=== PATIENT | female | born 1950 | race Caucasian/White ===

== ENCOUNTER 2020-07-12 08:23 | Outpatient (REF) | payer MEDICARE, SELFPAY ==
[2020-07-12 11:17] LABS: Hematocrit 36.7 % (37-47); Hemoglobin 11.6 g/dl (12.0-16.0); Mean Corpuscular HGB Conc 31.6 g/dl (31.0-35.0); Mean Corpuscular Hemoglobin 29.9 pg (27.0-33.0); Mean Corpuscular Volume 94.6 fL (80-98); Mean Platelet Volume 10.7 fL (9.4-12.3); Platelet Count 233 X10*3/uL (160-400); Red Blood Count 3.88 X10*6/uL (4.20-5.50); Red Cell Distribution Width 12.7 % (11.0-16.0); White Blood Count 4.9 X10*3/uL (4.8-10.8)
[2020-07-12 11:33] LABS: Glucose Urine UA NEG (NEG); Leukocyte Esterase Urine 1+ (NEG); Nitrite Urine NEG (NEG); Specific Gravity - Urine 1.025 (1.005-1.025); Urine Blood NEG (NEG); Urine Ketones NEG (NEG); Urine Protein NEG (NEG-TRACE)
[2020-07-12 11:36] LABS: Alanine Aminotransferase 9 U/L (0-31); Albumin Level 3.9 g/dL (3.5-5.0); Alkaline Phosphatase 52 U/L (39-117); Anion Gap 13 (12-20); Aspartate Amino Transferase 16 U/L (5-31); Bilirubin Total 0.3 mg/dL (0.0-1.0); Blood Urea Nitrogen 22 mg/dL (9-16); Carbon Dioxide 28 mmol/L (22-29); Chloride 104 mmol/L (96-108); Cholesterol 186 mg/dL; Estimated Glomerular Filt Rate > 60; Glucose Fasting 72 mg/dL (60-99); HDL Cholesterol 58 mg/dL; LDL Cholesterol Calculated 115 mg/dl; Potassium 3.8 mmol/L (3.3-5.1); Sodium 141 mmol/L (135-145); Total Protein 7.1 g/dL (6.5-8.0); Triglycerides 65 mg/dL
[2020-07-12 11:41] LABS: Appearance Urine CLEAR; Color Urine YELLOW
[2020-07-12 11:54] LABS: RBC Urine 0 /HPF (0); Squamous Epithelial Cell Urine 1+ /LPF
[2020-07-12 11:55] LABS: Calcium Oxalate Crystals Urine TRACE /LPF; Mucus Urine 1+ /LPF; Renal Epithelial Cells Urine 1+ /LPF
[2020-07-12 11:58] LABS: TSH reflex Free T4 1.91 uIU/mL (0.32-4.0); Vitamin D 25-OH Total 68.3 ng/mL (>30)
[2020-07-15 21:16] LABS: DHEA Sulfate 179 mcg/dL (12-133)
[2020-07-18 21:01] LABS: Cortisol, Free <0.03 mcg/dL
== END 2020-07-12 08:24 | disposition home or self-care (01) ==
LOC: HO.HMGCLDS 08:23
PROVIDERS: PCP Internal Medicine; Visit Provider Internal Medicine
DX: E27.1 Primary adrenocortical insufficiency (principal); I10 Essential (primary) hypertension; E03.9 Hypothyroidism, unspecified; M85.80 Other specified disorders of bone density and structure, unspecified site
CPT/HCPCS: 36415; 80053; 80061; 81001; 82306; 82530; 82627; 84443; 85027

== ENCOUNTER 2020-08-23 08:02 | Outpatient (REF) | payer MEDICARE, SELFPAY ==
[2020-08-23 11:16] LABS: Glucose Urine UA NEG (NEG); Leukocyte Esterase Urine NEG (NEG); Nitrite Urine NEG (NEG); Specific Gravity - Urine >= 1.030 (1.005-1.025); Urine Blood NEG (NEG); Urine Ketones NEG (NEG); Urine Protein NEG (NEG-TRACE)
[2020-08-23 11:19] LABS: Appearance Urine CLEAR; Color Urine YELLOW
[2020-08-23 11:33] LABS: Mucus Urine 1+ /LPF; RBC Urine 0 /HPF (0); Renal Epithelial Cells Urine TRACE /LPF; Squamous Epithelial Cell Urine TRACE /LPF
[2020-08-27 17:47] LABS: DHEA Sulfate 88 mcg/dL (12-133)
[2020-08-30 16:46] LABS: Cortisol, Free <0.03 mcg/dL
== END 2020-08-23 08:03 | disposition home or self-care (01) ==
LOC: HO.HMGCLDS 08:02
PROVIDERS: PCP Internal Medicine; Visit Provider Internal Medicine
DX: I10 Essential (primary) hypertension (principal); E03.9 Hypothyroidism, unspecified; E27.1 Primary adrenocortical insufficiency; M85.80 Other specified disorders of bone density and structure, unspecified site
CPT/HCPCS: 36415; 81001; 82530; 82627

== ENCOUNTER 2020-09-24 08:10 | Outpatient (REF) | payer MEDICARE, SELFPAY ==
[2020-09-25 12:26] LABS: DHEA Sulfate 171 mcg/dL (12-133)
[2020-10-06 21:37] LABS: Cortisol, Free <0.03 mcg/dL
== END 2020-09-24 08:11 | disposition home or self-care (01) ==
LOC: HO.HMGCLDS 08:10
PROVIDERS: PCP Internal Medicine; Visit Provider Internal Medicine
DX: E03.9 Hypothyroidism, unspecified (principal); I10 Essential (primary) hypertension; E27.1 Primary adrenocortical insufficiency
CPT/HCPCS: 36415; 82530; 82627

== ENCOUNTER 2021-01-08 13:48 | Outpatient (REF) | payer MEDICARE, SELFPAY ==
--- NOTE | ~2021-01-08 | XR_ITS ---
EXAMINATION: XR CHEST CLINICAL INFORMATION: Pneumonia COMPARISON: None TECHNIQUE: 2 views of the chest were obtained. FINDINGS: There is no evidence of acute parenchymal disease, pneumothorax or pleural effusion. Heart normal size. No evidence of pulmonary edema. There is some right apical pleural thickening present. There is scoliosis at the thoracolumbar junction convex right. XR/XR chest 2V IMPRESSION: No acute disease.
== END 2021-01-08 13:49 | disposition home or self-care (01) ==
LOC: HO.HMGCX 13:48
PROVIDERS: PCP Internal Medicine; Visit Provider Internal Medicine
DX: Z13.89 Encounter for screening for other disorder (principal)
CPT/HCPCS: 71046

== ENCOUNTER 2021-05-14 09:46 | Outpatient (REF) | payer MEDICARE, SELFPAY ==
[2021-05-14 11:36] LABS: Hematocrit 36.5 % (37.0-47.0); Hemoglobin 11.7 g/dl (12.0-16.0); Mean Corpuscular HGB Conc 32.1 g/dl (31.0-35.0); Mean Corpuscular Hemoglobin 30.2 pg (27.0-33.0); Mean Corpuscular Volume 94.1 fL (80.0-98.0); Mean Platelet Volume 10.9 fL (9.4-12.3); Platelet Count 215 X10*3/uL (160-400); Red Blood Count 3.88 X10*6/uL (4.20-5.50); Red Cell Distribution Width 12.9 % (11.0-16.0); White Blood Count 4.8 X10*3/uL (4.8-10.8)
[2021-05-14 12:10] LABS: Alanine Aminotransferase 12 U/L (0-31); Alkaline Phosphatase 49 U/L (39-117); Anion Gap 10 (12-20); Aspartate Amino Transferase 16 U/L (5-31); Bilirubin Total 0.4 mg/dL (0.0-1.0); Blood Urea Nitrogen 21 mg/dL (9-16); Calcium 9.5 mg/dL (8.4-10.2); Carbon Dioxide 29 mmol/L (22-29); Chloride 106 mmol/L (96-108); Cholesterol 200 mg/dL; Estimated Glomerular Filt Rate > 60; Glucose Fasting 81 mg/dL (60-99); HDL Cholesterol 59 mg/dL; LDL Cholesterol Calculated 131 mg/dl; Potassium 4.1 mmol/L (3.3-5.1); Sodium 141 mmol/L (135-145); Total Protein 7.4 g/dL (6.5-8.0); Triglycerides 54 mg/dL
[2021-05-14 12:13] LABS: Vitamin D 25-OH Total 61.7 ng/mL (>30)
== END 2021-05-14 09:47 | disposition home or self-care (01) ==
LOC: HO.HMGCLDS 09:46
PROVIDERS: PCP Internal Medicine; Visit Provider Internal Medicine
DX: E03.9 Hypothyroidism, unspecified (principal); I10 Essential (primary) hypertension
CPT/HCPCS: 36415; 80053; 80061; 82306; 85027

== ENCOUNTER 2021-11-27 09:14 | Outpatient (REF) | payer MEDICARE, SELFPAY ==
[2021-11-27 12:30] LABS: TSH reflex Free T4 2.59 uIU/mL (0.32-4.0)
[2021-11-27 12:32] LABS: Alanine Aminotransferase 8 U/L (0-31); Albumin Level 3.8 g/dL (3.5-5.0); Alkaline Phosphatase 49 U/L (39-117); Anion Gap 12 (12-20); Aspartate Amino Transferase 14 U/L (5-31); Bilirubin Total 0.3 mg/dL (0.0-1.0); Blood Urea Nitrogen 23 mg/dL (9-16); Carbon Dioxide 28 mmol/L (22-29); Chloride 104 mmol/L (96-108); Cholesterol 167 mg/dL; Estimated Glomerular Filt Rate > 60; Glucose Fasting 75 mg/dL (60-99); HDL Cholesterol 53 mg/dL; LDL Cholesterol Calculated 102 mg/dl; Potassium 3.9 mmol/L (3.3-5.1); Sodium 140 mmol/L (135-145); Triglycerides 63 mg/dL
== END 2021-11-27 09:15 | disposition home or self-care (01) ==
LOC: HO.HMGCLDS 09:14
PROVIDERS: PCP Internal Medicine; Visit Provider Internal Medicine
DX: E27.1 Primary adrenocortical insufficiency (principal); I10 Essential (primary) hypertension; E03.9 Hypothyroidism, unspecified
CPT/HCPCS: 36415; 80053; 80061; 84443

== ENCOUNTER 2021-12-09 15:29 | Outpatient (REF) | payer MEDICARE, SELFPAY ==
[2021-12-09 15:46] LABS: MANUAL DIFF FLAG NO
[2021-12-09 16:25] LABS: Basophils Percent Auto 0.3 % (0-2); Hematocrit 35.2 % (37.0-47.0); Hemoglobin 11.6 g/dl (12.0-16.0); Imm Gran Abs Auto 0.05 X10*3/uL (0.00-0.03); Imm Gran Pct Auto 0.4 % (0.0-0.4); Lymphocytes Absolute Auto 1.3 X10*3/uL (1.2-4.9); Lymphocytes Percent Auto 11.2 % (20-40); Mean Corpuscular Hemoglobin 30.2 pg (27.0-33.0); Mean Corpuscular Volume 91.7 fL (80.0-98.0); Mean Platelet Volume 10.4 fL (9.4-12.3); Monocytes Absolute Auto 0.6 X10*3/uL (0.1-1.2); Monocytes Percent Auto 5.2 % (2-11); Neutrophils Absolute Auto 9.9 x10*3/uL (2.0-8.3); Neutrophils Percent Auto 82.9 % (45-73); Platelet Count 263 X10*3/uL (160-400); Red Blood Count 3.84 X10*6/uL (4.20-5.50); Red Cell Distribution Width 12.6 % (11.0-16.0)
[2021-12-09 16:32] LABS: D Dimer High Sensitivity 209 NG/ML
[2021-12-09 16:52] LABS: B Type Natriuretic Peptide 162 pg/mL (<100)
[2021-12-09 16:53] LABS: Alanine Aminotransferase 6 U/L (0-31); Albumin Level 4.1 g/dL (3.5-5.0); Alkaline Phosphatase 56 U/L (39-117); Anion Gap 15 (12-20); Aspartate Amino Transferase 13 U/L (5-31); Bilirubin Total 0.4 mg/dL (0.0-1.0); Blood Urea Nitrogen 14 mg/dL (9-16); C Reactive Protein 3.28 mg/dL (< or = 0.50); Calcium 9.3 mg/dL (8.4-10.2); Carbon Dioxide 27 mmol/L (22-29); Chloride 101 mmol/L (96-108); Estimated Glomerular Filt Rate > 60; Glucose Random 115 mg/dL (60-115); Potassium 3.8 mmol/L (3.3-5.1); Sodium 139 mmol/L (135-145); Total Protein 7.7 g/dL (6.5-8.0)
[2021-12-18 18:21] LABS: Cortisol, Free 0.76 mcg/dL
== END 2021-12-09 15:30 | disposition home or self-care (01) ==
LOC: HO.LAB 15:29
PROVIDERS: PCP Internal Medicine; Visit Provider Internal Medicine
DX: R06.02 Shortness of breath (principal); R05.9 Cough, unspecified
CPT/HCPCS: 36415; 80053; 82530; 83880; 85025; 85379; 86140

== ENCOUNTER → 2021-12-24 10:55 | Outpatient (REF) | payer MEDICARE, SELFPAY | LOC: HO.SL 10:55 | PROVIDERS: PCP Internal Medicine; Visit Provider Internal Medicine | DX: G47.33 Obstructive sleep apnea (adult) (pediatric) (principal) | CPT/HCPCS: 95806 ==

== ENCOUNTER → 2022-02-11 10:53 | Outpatient (BNVA) | payer MEDICARE, SELFPAY | PROVIDERS: PCP Internal Medicine; Visit Provider Nurse Practitioner Family | DX: G47.30 Sleep apnea, unspecified (principal) | CPT/HCPCS: 99202 ==

== ENCOUNTER → 2022-02-12 14:55 | Outpatient (REF) | payer MEDICARE, SELFPAY ==
--- NOTE | 2022-02-12 14:57 | CA_ITS ---
Transthoracic Echocardiogram Patient (Last, First, Middle): Ratan Rodarte M Gender: Female Date of : 1950 Age: 71 Procedure Date: 02/12/2022 Procedure Type: Transthoracic Echocardiogram Location: OP Height: 165.1 cm Weight: 58.06 kg BSA: 1.64 m2 Heart Rate: 77 bpm BP: 102 / 76 mmHg Linen Checker: SB Referring MD: Michelle Álvarez MD Square Shear Operator: Guy Patrick MD Symptoms: R00.2 - Palpitations Study Quality: Adequate ECG Rhythm: Sinus Conclusions: - 1. Normal LV systolic function with impaired relaxation filling pattern 2. Normal cardiac valvular Doppler 3. Normal RV systolic pressure 4. No pericardial effusion Findings Left Ventricle Normal left ventricular size, thickness, and systolic function. The visually estimated ejection fraction is between 60-65%. Spectral Doppler is indicative of an impaired relaxation filling pattern. Right Ventricle Normal right ventricular cavity size and systolic function. Atria Both atria are normal in size. Interatrial shunt cannot be excluded. Aortic Valve There is mild calcification of the aortic valve. There is no aortic valve stenosis. There is no aortic valve regurgitation. Mitral Valve There is mild anterior mitral leaflet thickening. There is trace mitral valve regurgitation. There is no mitral valve stenosis. Pulmonic Valve The pulmonic valve was not well visualized. Tricuspid Valve Likely normal tricuspid valve structure and function. There is trace tricuspid valve regurgitation. The right ventricular systolic pressure is normal. The right ventricular systolic pressure is 23 mmHg. Normal right atrial pressure. There is no evidence of pulmonary hypertension. Great Vessels All visible segments of the aorta are normal in size. The pulmonary artery was not well visualized. Venous The inferior vena cava is normal in size and collapses greater than 50% with inspiration. Pericardium/Pleural There is no evidence of pericardial effusion. Prior Study Comparison No significant change compared to prior study dated: 02/03/2017. Measurements 2D Linear Measurements IVSd: 0.65 0.6-0.9/0.6-1.0 cm LVIDd: 3.54 3.9-5.3/4.2-5.9 cm LVIDd Index: 2.16 2.4-3.2/2.2-3.1 cm/m2 LVIDs: 2.40 2.0-3.6 cm LVPWd: 0.52 0.7-1.1 cm LA Diam: 1.90 2.7-3.8/3.0-4.0 cm LAIDs Index: 1.16 1.5-2.3 cm/m2 LV Mass: 62.25 67-162/88-224 g LV Mass Index: 37.96 43-95/49-115 g/m2 LVOT Diam: 2.00 3.0+(-)1.3 cm 2D Systolic Function EF 4C: 60.70 >55% EF 2C: 59.80 >55% EF BiP: 60.70 >55% Mitral Valve MV Pk E: 0.52 MV PK A: 0.49 MV Decel Time: 191.00 E/A: 1.10 E'Lateral: 8.70 E'Medial: 7.18 E/E' Med: 7.20 E/E' Lat: 6.00 PHT: 56.00 MVA PHT: 3.93 Decel Drew: 2.71 Aortic Valve AoV Pk Aayush: 1.00 AoV Mn Aayush: 0.65 AoV VTI: 0.14 AoV Pk Grad: 4.00 Aov Mn Grad: 2.00 XIOMY Cont.VTI: 2.94 LVOT LVOT Pk Aayush: 0.81 LVOT Mn Aayush: 0.56 LVOT VTI: 0.14 LVOT Pk Grad: 3.00 LVOT Mn Grad: 1.00 LVOT Diam: 2.00 LVOT Area: 3.14 Diastolic Function MV Pk E: 0.52 MV Pk A: 0.49 E/A: 1.10 E'Medial: 7.18 E/E' Med: 7.20 E' Laterial: 8.70 E/E' Lat: 6.00 Right Ventricle TAPSE (mm): 11.50 TVS' Aayush: 6.50 Tricuspid Valve TR Pk Aayush: 2.23 TR Pk Grad: 20.00 RA Press: 3.00 RVSP: 23.00 Great Vessels Aorta Sinus of Valsalva: 3.10 2.0-3.5 cm Pulmonary Valve PV Pk Aayush: 0.76 Peak PV Grad: 2.00 Updated in Other Vendor System with Status of Final Guy Patrick MD electronically signed on 02/13/2022 11:17:00 AM with status of Final
--- NOTE | 2022-02-12 14:57 | HM_ITS ---
Conclusion: 1. Patient was monitored for total period of 4 days and 21 hours 2. Baseline was normal sinus rhythm with average heart rate of 71 beats per minute 3. No significant pauses or bradycardia noted 4. Total of 460 PACs accounting for 0.09% of total beats account for rare PACs 5. Patient reported multiple events correlated with sinus rhythm MTDD
== END ==
LOC: HO.CARD 14:55
PROVIDERS: PCP Internal Medicine; Visit Provider Internal Medicine
DX: R00.2 Palpitations (principal)
CPT/HCPCS: 93242; 93306

== ENCOUNTER → 2022-05-13 10:53 | Outpatient (BNVA) | payer MEDICARE, SELFPAY | PROVIDERS: PCP Internal Medicine; Visit Provider Nurse Practitioner Family | DX: G47.30 Sleep apnea, unspecified (principal) | CPT/HCPCS: 99212 ==

== ENCOUNTER 2022-10-23 09:41 | Outpatient (REF) | payer MEDICARE, SELFPAY | END 2022-10-23 09:42 | disposition home or self-care (01) | LOC: HO.HMGCLDS 09:41 | PROVIDERS: PCP Internal Medicine; Visit Provider Internal Medicine | DX: Z00.00 Encounter for general adult medical examination without abnormal findings (principal); E03.9 Hypothyroidism, unspecified; E27.1 Primary adrenocortical insufficiency; I10 Essential (primary) hypertension | CPT/HCPCS: 36415; 80053; 80061; 85025 ==

== ENCOUNTER 2022-11-11 11:26 | Outpatient (AMB) | payer MEDICARE, SELFPAY ==
[2022-11-11 11:56] VITALS: BP 136/78; PULSE 64; O2SAT 98; BMI 22.6
--- NOTE | 2022-11-11 11:56 | MHC.PC.OV ---
Vital Signs 11/11/22 11:56 Height 5 ft 5 in Intake Visit Reasons: AWV Allergies No Known Allergies Allergy (Verified 05/13/22 10:59) Tobacco use date assessed: 03/24/22 [facility] Medical History Addisons disease Annual physical exam HTN (hypertension) Human papilloma virus (HPV) DNA test negative Hypothyroidism Microscopic hematuria Osteopenia Osteopenia Kathleen syndrome Vaginal pessary present Surgical History H/O colonoscopy History of esophagogastroduodenoscopy (EGD) History of lung surgery Social History Housing: House Alcohol intake: current Alcohol intake frequency: holidays/special occasions only Patient Tobacco Use Status: Never used Tobacco e-Cigarette/Vaping Use: Never Used Current occupational status: retired Cognitive needs: No Hearing needs: No Vision needs: No Questionnaire Thrive Questionnaire Date Thrive assessed: 03/24/22 SENIA-7 AMB Questionnaire SENIA-7 Date SENIA - 7 assessed: 03/24/22 Source: Developed by Drs. Sammy Dumas, Cary Mccormack, Davidson Blake and colleagues, with an educational zhanna from [employer]. Physical exam (Primary Care) Tobacco/Smoking Status: Tobacco use Status Tobacco use date assessed 03/24/22 03/24/22 10:24 Patient Tobacco Use Status Never used Tobacco 03/24/22 10:24 e-Cigarette/Vaping Use Never Used 03/24/22 10:24 Thrive Assessment: Date of Thrive Assessment Date Thrive assessed 03/24/22 03/24/22 10:24 Coding Diagnoses
--- NOTE | 2022-11-11 11:57 | AM.OFFVISMDC ---
Intake Vital Signs 11/11/22 11:56 Height 5 ft 5 in Weight 136 lb BMI 22.6 BP 136/78 Blood Pressure Location Lt brachial Position Sitting Pulse 64 Pulse Source Pulse Oximeter Pulse Oximetry (%) 98 Oxygen Delivery Method Room Air Intake Visit Reasons: AWV Intake Note: Pt is here today for AWV. Allergies No Known Allergies Allergy (Verified 11/11/22 11:59) Medication List - Last Reconciled 11/11/22 by Michelle Álvarez MD calcium carbonate 600 mg PO DAILY cholecalciferol (vitamin D3) 75 mcg PO DAILY fludrocortisone 0.1 mg PO DAILY hydrocortisone mg PO levothyroxine 88 mcg PO DAILY nifedipine ER 30 mg PO DAILY pantoprazole mg PO HPI AWV HPI Details Pt presents for annual.Initiated the conversation about Advanced Directives. Advanced Directives help? patients prepare for current and future decisions about their medical treatment? and place of care. Discussed with patient that it is a process where a patients? current condition and prognosis are reviewed, their wishes for information? regarding their illness are elicited, and likely medical dilemmas are presented? and options discussed. The form can be amended as needed, reviewed yearly and? make changes as needed IPPE/AWV ? year old presents? for her ? Annual? Wellness Visit, initial visit.? Medical / Social History Reviewed? Past Medical History ?Yes? . ? [place]? of Care / Care Team list updated ?Yes . ? Surgical/Hospitalization? History ?Yes . ? Current Medications? (including OTC and supplements) ?Yes . ? Family History ?Yes? . ? Tobacco? Control form ?Yes . ? AUDIT-C (Alcohol use) form? ?Yes . ? Illicit drug use in Social? History ?Yes . ? Current diagnosis of? depression? ?No ? Appropriate PHQ2/PHQ9? completed ?Yes . ? Data entered by ?Medical? Senior Financial Reporting Analyst and reviewed by provider ? Fall Risk ? Fall? History? Have you had any falls with? injury in the past year? ?No . ? Have you had two or more? falls in the past year? ?No . ? Fall Risk Assessment: ?No? falls in the past year . ? HRA filled out by? the patient, reviewed by Provider and scanned. ? IPPE/AWV ? Balance? [place]? ?Yes . ? Tandem? walk ?Yes . ? Walk and? Turn ?Yes . ? Rise from? sit to stand ?Yes . ?Vision? Corrective? lens ?Yes ? Vision? screen ? Up-to-date, has an appointment [] for vision? screening and glaucoma screening ?Hearing? Whisper? test ?pass .? Initiated the conversation about Advanced Directives. Advanced Directives help? patients prepare for current and future decisions about their medical treatment? and place of care. Discussed with patient that it is a process where a patients? current condition and prognosis are reviewed, their wishes for information? regarding their illness are elicited, and likely medical dilemmas are presented? and options discussed. The form can be amended as needed, reviewed yearly and? make changes as needed Written? Plan?Completed. See Patient? Documents. [facility] Medical History Addisons disease Annual physical exam HTN (hypertension) Human papilloma virus (HPV) DNA test negative Hypothyroidism Microscopic hematuria Osteopenia Osteopenia Kathleen syndrome Vaginal pessary present Surgical History H/O colonoscopy History of esophagogastroduodenoscopy (EGD) History of lung surgery Social History Housing: House Alcohol intake: current Alcohol intake frequency: holidays/special occasions only Patient Tobacco Use Status: Never used Tobacco e-Cigarette/Vaping Use: Never Used Current occupational status: retired Cognitive needs: No Hearing needs: No Vision needs: No Questionnaire Medicare Wellness Checkup [age] What gender do you identify with?: female During the past 4 weeks, how much have you been bothered by emotional problems such as feeling anxious, depressed, irritable, sad or downhearted, and blue?: slightly During the past 4 weeks, has your physical & emotional health limited your social activities with family, friends, neighbors, or groups?: not at all During the past 4 weeks, how much bodily pain have you generally had?: no pain During the past 4 weeks, was someone available to help you if you needed & wanted help?: yes, as much as I wanted During the past 4 weeks, what was the hardest physical activity you could do for at least 2 minutes?: heavy Can you get to places out of walking distance without help? (For eg., can you travel alone on buses, taxis or drive your car?): Yes Can you go shopping for groceries or clothes without someone's help?: Yes Can you prepare your own meals?: Yes Can you do your housework without help?: Yes Because of any health problems, do you need the help of another person with your personal care needs such as eating, bathing, dressing or getting around the house?: No Can you handle your own money without help?: Yes During the past 4 weeks, how would you rate your health in general?: excellent During the past 4 weeks how have things been going for you?: pretty well Are you having difficulties driving your car?: no Do you always fasten your seat belt when you are in a car?: yes, usually During past 4 weeks, have you been bothered by the following: never: Falling or dizzy when standing up, Sexual problems?, Trouble eating well?, Teeth or denture problems?, Problems using the telephone? and Tiredness or fatigue? Have you fallen 2 or more times in the past year?: No Are you afraid of falling?: No Are you a smoker?: no During the past 4 weeks, how many drinks of wine, beer, or other alcoholic beverages did you have?: 1 drink or less per week Do you exercise for about 20 minutes 3 or more times a week?: yes, some of the time Have you been given information to help with the following?: no: Hazards in your house that might hurt you? and no: Keeping track of your medications? How often do you have trouble taking medicines the way you have been told to take them?: I always take medicine as prescribed How confident are you that you can control & manage most of your health problems?: very confident What is your race?: White Mini Mental State Exam (MMSE) Orientation What is the (year) (season) (date) (day) (month)?: year, season, date, day and month Where are we (state) (county) (town or city) (hospital) (floor)?: state, county, town or city, hospital/clinic and floor Registration Name of 3 unrelated objects clearly and slowly, then ask patient to repeat all 3 of them. (1st repeat determines score. Make sure they can repeat all three): object 1, object 2 and object 3 Attention & Calculation (CHOOSE ONE) Spell WORLD backwards (DLROW): 5 letters Recall Ask patient to repeat the 3 items from question #3.: object 1, object 2 and object 3 Language Show patient a wristwatch & ask what it is. Repeat for pencil.: watch and pencil Ask the patient to repeat the phrase 'No ifs, ands, or buts' after you.: correct Ask the patient to 'take a piece of paper with their right hand' 'fold paper in half' 'place paper on floor': take paper in right hand, fold paper in half and place paper on floor Print the sentence 'CLOSE YOUR EYES' on a piece. If patient actually closes eyes then score.: followed written direction Give patient a blank piece of paper & ask to write a sentence. Score if it contains a noun & verb.: sentence contains subject and verb Ask patient to copy figure of intersecting pentagons exactly. Score if all 10 angles & 2 intersects are included.: all 10 angles present & 2 are intersected Score Score: 30 Activity of Daily Living Bathing - sponge bath, tub bath or shower: receives no assistance (gets in/out by self, if usual bathing means Dressing - getting clothes from closets & drawers, including inner/outer garments & fasteners.: gets clothes & gets completely dressed without help Toileting - going to the 'toilet room' for urine/bowel elimination & cleaning self/arranging clothes: goes to toilet room, cleans self, arranges clothes without help Transfer: moves in & out of bed and chair without help (may use support object) Continence: controls urination/bowel movements completely by self Feeding: feeds self without help Total Score: 0 Information obtained from: patient Using telephone: independent Traveling: independent Shopping: independent Preparing meals: independent Housework: independent Taking medicine: independent Managing money: independent PHQ-9 Over the last 2 weeks, how often have you been bothered by any of the following problems? 1. Little interest or pleasure in doing things: not at all 2. Feeling down, depressed, or hopeless: not at all 3. Trouble falling or staying asleep, or sleeping too much: not at all 4. Feeling tired or having little energy: not at all 5. Poor appetite or overeating: not at all 6. Feeling bad about yourself - or that you are a failure or have let yourself or your family down: not at all 7. Trouble concentrating on things, such as reading the newspaper or watching television: not at all 8. Moving or speaking so slowly that other people could have noticed. Or the opposite - being so fidgety or restless that you have been moving around a lot more than usual: not at all 9. Thoughts that you would be better off or of hurting yourself in some way: not at all Total score: 0 Depression Screening Interpretation: Negative Source: Developed by Drs. Sammy Dumas, Cary Mccormack, Davidson Blake and colleagues, with an educational zhanna from [employer]. Review of Systems Const All systems reviewed & are unremarkable except as noted in HPI and below Reports no additional complaints Eyes Reports no additional complaints ENT Reports no additional complaints Card Reports no additional complaints Resp Reports no additional complaints GI Reports no additional complaints Reports no additional complaints Physical Exam Vital Signs: Last Vital Signs Pulse 64 11/11/22 11:56 BP 136/78 11/11/22 11:56 Pulse Ox 98 11/11/22 11:56 Oxygen Delivery Method Room Air 11/11/22 11:56 BMI result Body Mass Index 22.6 Const General: no acute distress HEENT Head: Yes normal to inspection Eyes General: appearance normal, both eyes and all related structures Neck Neck: Yes no lymphadenopathy and Yes supple Resp Effort & Inspection: normal respiratory effort Auscultation: clear to auscultation bilaterally GI Inspection: Yes normal to inspection Palpation (GI): Soft to palpation Percussion: Yes normal to percussion Auscultation: normal bowel sounds Extrem General: Yes normal to inspection and Yes no clubbing, cyanosis or edema Assessment & Plan Assessment & Plan (1) Annual physical exam: Code(s): Z00.00 - Encounter for general adult medical examination without abnormal findings Plan: well balnced diet and regular physical activity discussed with the patient. She is up-to-date with mammogram and colonoscopy (2) Hypothyroidism: Comment: Follow-up with [facility]ocr[facility]ology Code(s): E03.9 - Hypothyroidism, unspecified Plan: continue levothyroxine (3) HTN (hypertension): Code(s): I10 - Essential (primary) hypertension Plan: continue nifedipine (4) Addisons disease: Comment: follow-up with [facility] Endocrinology Code(s): E27.1 - Primary adrenocortical insufficiency Orders: Orders Vitamin B12 and Folate 6 Months E03.9 - Hypothyroidism, unspecified, I10 - Essential (primary) hypertension, Z00.00 - Encounter for general adult medical examination without abnormal findings IRON PROFILE 6 Months E03.9 - Hypothyroidism, unspecified, I10 - Essential (primary) hypertension, Z00.00 - Encounter for general adult medical examination without abnormal findings Complete Blood Count Auto Diff 6 Months E03.9 - Hypothyroidism, unspecified, I10 - Essential (primary) hypertension, Z00.00 - Encounter for general adult medical examination without abnormal findings Immunofixation Pnl, Serum 6 Months E03.9 - Hypothyroidism, unspecified, I10 - Essential (primary) hypertension, Z00.00 - Encounter for general adult medical examination without abnormal findings Comprehensive [place]. Panel Fast 365 Days E03.9 - Hypothyroidism, unspecified, I10 - Essential (primary) hypertension, Z00.00 - Encounter for general adult medical examination without abnormal findings Lipid Panel 365 Days E03.9 - Hypothyroidism, unspecified, I10 - Essential (primary) hypertension, Z00.00 - Encounter for general adult medical examination without abnormal findings Complete Blood Count Auto Diff 365 Days E03.9 - Hypothyroidism, unspecified, I10 - Essential (primary) hypertension, Z00.00 - Encounter for general adult medical examination without abnormal findings Quality Reporting (2020) Depression/Bipolar (159/160/161/177) PHQ-9: Total score: 0 Coding Level of Care Code Medicare Subsequent (G0439) Diagnoses Annual physical exam Z00.00 Hypothyroidism E03.9 HTN (hypertension) I10 Addisons disease E27.1 CPT Codes Advance Care Planning - Time spent: 1-15 minutes, not on file ([id number]) Advance Care Planning Advance Care Planning discussion: Exists, not on file Forms completed: Health Care Proxy Time spent: 1-15 minutes, not on file
== END 2022-11-11 14:10 | disposition home or self-care (01) ==
PROVIDERS: Visit Provider Internal Medicine
DX: Z00.00 Encounter for general adult medical examination without abnormal findings (principal); E03.9 Hypothyroidism, unspecified; I10 Essential (primary) hypertension; E27.1 Primary adrenocortical insufficiency
CPT/HCPCS: 1124F; G0439

== ENCOUNTER 2023-11-02 12:38 | Outpatient (AMB) | payer MEDICARE, SELFPAY ==
[2023-11-02 12:57] VITALS: BP 120/70; PULSE 80; O2SAT 98; BMI 22.3
--- NOTE | 2023-11-02 12:57 | MHC.PC.OV ---
Vital Signs 11/02/23 12:57 Height 5 ft 5 in Intake Visit Reasons: SWV Allergies No Known Allergies Allergy (Verified 11/11/22 11:59) Tobacco use date assessed: 03/24/22 [facility] Medical History Addisons disease Annual physical exam HTN (hypertension) Human papilloma virus (HPV) DNA test negative Hypothyroidism Microscopic hematuria Osteopenia Osteopenia Kathleen syndrome Vaginal pessary present Surgical History H/O colonoscopy History of esophagogastroduodenoscopy (EGD) History of lung surgery Social History (Reviewed 05/13/22 @ 11:02 by Melvi Chacko [facility] [address]) Housing: House Alcohol intake: current Alcohol intake frequency: holidays/special occasions only Patient Tobacco Use Status: Never used Tobacco e-Cigarette/Vaping Use: Never Used Current occupational status: retired Cognitive needs: No Hearing needs: No Vision needs: No Questionnaire PHQ-9 Over the last 2 weeks, how often have you been bothered by any of the following problems? 1. Little interest or pleasure in doing things: several days 2. Feeling down, depressed, or hopeless: not at all 3. Trouble falling or staying asleep, or sleeping too much: not at all 4. Feeling tired or having little energy: several days 5. Poor appetite or overeating: not at all 6. Feeling bad about yourself - or that you are a failure or have let yourself or your family down: not at all 7. Trouble concentrating on things, such as reading the newspaper or watching television: not at all 8. Moving or speaking so slowly that other people could have noticed. Or the opposite - being so fidgety or restless that you have been moving around a lot more than usual: not at all 9. Thoughts that you would be better off or of hurting yourself in some way: not at all Total score: 2 Source: Developed by Drs. Sammy Dumas, Cary Mccormack, Davidson Blake and colleagues, with an educational zhanna from [employer]. Thrive Questionnaire Date Thrive assessed: 03/24/22 I am a: Patient What is your living situation today?: I have a steady place to live Within the past 12 months, did the food you bought not last and you didn't have the money to get more?: Never true Within the past 12 months, did you worry whether your food would run out before you got money to buy more?: Never true Do you have trouble paying for medicines?: No Do you have trouble getting transportation to medical appointments?: No Do you have trouble paying your heating and electricity bill?: No Do you have trouble taking care of your child, family member or friend?: No Do you have trouble with day-to-day activities such as bathing, preparing meals, shopping, managing finances, etc.?: No Are you currently unemployed and looking for a job?: No Are you interested in more education?: No Please select the resources that you would like help with: Housing/Half-Way Currently or been in a relationship where the following occur: No concerns reported THRIVE Score: 0 AUDIT C Alcohol Use Questionnaire (AUDIT-C) 1. How often do you have a drink containing alcohol?: Monthly or less 2. How many drinks containing alcohol do you have on a typical day when you are drinking?: 1 or 2 3. How often do you have six or more drinks on one occasion?: Never Total Score: 1 SENIA-7 AMB Questionnaire SENIA-7 Date SENIA - 7 assessed: 03/24/22 Feeling nervous, anxious, or on edge: 0 = Not at all Not being able to stop or control worryin = Not at all Worrying too much about different things: 0 = Not at all Trouble relaxin = Not at all Being so restless that it is hard to sit still: 0 = Not at all Becoming easily annoyed or irritable: 0 = Not at all Feeling afraid as if something awful might happen: 0 = Not at all Total SENIA-7 score (0-4 normal; 5-9 mild; 10-14 moderate; 15-21 severe): 0 Source: Developed by Drs. Sammy Dumas, Cary Mccormack, Davidson Blake and colleagues, with an educational zhanna from [employer]. Physical exam (Primary Care) Tobacco/Smoking Status: Tobacco use Status Tobacco use date assessed 03/24/22 03/24/22 10:24 Patient Tobacco Use Status Never used Tobacco 03/24/22 10:24 e-Cigarette/Vaping Use Never Used 03/24/22 10:24 Thrive Assessment: Date of Thrive Assessment Date Thrive assessed 03/24/22 03/24/22 10:24 Currently or been in a relationship where the following occur: No concerns reported Coding
--- NOTE | 2023-11-02 13:01 | A.OFFVIS_ITS ---
Intake Vital Signs 11/02/23 12:57 Height 5 ft 5 in Weight 134 lb BMI 22.3 BP 120/70 Blood Pressure Location Lt brachial Position Sitting Pulse 80 Pulse Source Pulse Oximeter Pulse Oximetry (%) 98 Oxygen Delivery Method Room Air Intake Visit Reasons: SWV Allergies No Known Allergies Allergy (Verified 11/02/23 13:01) Medication List - Last Reconciled 11/02/23 by Michelle Álvarez MD calcium carbonate 600 mg PO DAILY cholecalciferol (vitamin D3) 75 mcg PO DAILY fludrocortisone 0.1 mg PO DAILY hydrocortisone mg PO levothyroxine 88 mcg PO DAILY nifedipine ER 30 mg PO DAILY pantoprazole mg PO HPI SWV HPI Details Patient presents for annual visit. She complains of right-sided chest discomfort 1/10 constant for the last week and increased fatigue. Patient had some dyspnea on exertion after playing golf in hot weather today.. Initiated the conversation about Advanced Directives. Advanced Directives help? patients prepare for current and future decisions about their medical treatment? and place of care. Discussed with patient that it is a process where a patients? current condition and prognosis are reviewed, their wishes for information? regarding their illness are elicited, and likely medical dilemmas are presented? and options discussed. The form can be amended as needed, reviewed yearly and? make changes as needed IPPE/AWV ? year old presents? for her ? Annual? Wellness Visit, initial visit.? Medical / Social History Reviewed? Past Medical History ?Yes? . ? [place]? of Care / Care Team list updated ?Yes . ? Surgical/Hospitalization? History ?Yes . ? Current Medications? (including OTC and supplements) ?Yes . ? Family History ?Yes? . ? Tobacco? Control form ?Yes . ? AUDIT-C (Alcohol use) form? ?Yes . ? Illicit drug use in Social? History ?Yes . ? Current diagnosis of? depression? ?No ? Appropriate PHQ2/PHQ9? completed ?Yes . ? Data entered by ?Medical? Manager Transmission and reviewed by provider ? Fall Risk ? Fall? History? Have you had any falls with? injury in the past year? ?No . ? Have you had two or more? falls in the past year? ?No . ? Fall Risk Assessment: ?No? falls in the past year . ? HRA filled out by? the patient, reviewed by Provider and scanned. ? IPPE/AWV ? Balance? [place]? ?Yes . ? Tandem? walk ?Yes . ? Walk and? Turn ?Yes . ? Rise from? sit to stand ?Yes . ?Vision? Corrective? lens ?Yes ? Vision? screen ? Up-to-date, has an appointment [] for vision? screening and glaucoma screening ?Hearing? Whisper? test ?pass .? Initiated the conversation about Advanced Directives. Advanced Directives help? patients prepare for current and future decisions about their medical treatment? and place of care. Discussed with patient that it is a process where a patients? current condition and prognosis are reviewed, their wishes for information? regarding their illness are elicited, and likely medical dilemmas are presented? and options discussed. The form can be amended as needed, reviewed yearly and? make changes as needed Written? Plan?Completed. See Patient? Documents. [facility] Medical History Vaginal pessary present Human papilloma virus (HPV) DNA test negative Osteopenia Annual physical exam Microscopic hematuria Osteopenia Hypothyroidism Kathleen syndrome HTN (hypertension) Addisons disease Surgical History History of lung surgery History of esophagogastroduodenoscopy (EGD) H/O colonoscopy Family History (Updated 11/02/23 @ 13:14 by KIERAN Salas) Father No problems noted. Mother No problems noted. Social History Housing: House Alcohol intake: current Alcohol intake frequency: holidays/special occasions only Patient Tobacco Use Status: Never used Tobacco e-Cigarette/Vaping Use: Never Used Current occupational status: retired Cognitive needs: No Hearing needs: No Vision needs: No Questionnaire Medicare Wellness Checkup [age] What gender do you identify with?: female During the past 4 weeks, how much have you been bothered by emotional problems such as feeling anxious, depressed, irritable, sad or downhearted, and blue?: not at all During the past 4 weeks, has your physical & emotional health limited your social activities with family, friends, neighbors, or groups?: not at all During the past 4 weeks, how much bodily pain have you generally had?: no pain During the past 4 weeks, was someone available to help you if you needed & wanted help?: yes, as much as I wanted During the past 4 weeks, what was the hardest physical activity you could do for at least 2 minutes?: heavy Can you get to places out of walking distance without help? (For eg., can you travel alone on buses, taxis or drive your car?): Yes Can you go shopping for groceries or clothes without someone's help?: Yes Can you prepare your own meals?: Yes Can you do your housework without help?: Yes Because of any health problems, do you need the help of another person with your personal care needs such as eating, bathing, dressing or getting around the house?: No Can you handle your own money without help?: Yes During the past 4 weeks, how would you rate your health in general?: very good During the past 4 weeks how have things been going for you?: pretty well Are you having difficulties driving your car?: no Do you always fasten your seat belt when you are in a car?: yes, usually During past 4 weeks, have you been bothered by the following: never: Falling or dizzy when standing up, Sexual problems?, Trouble eating well?, Teeth or denture problems? and Problems using the telephone? and sometimes: Tiredness or fatigue? Have you fallen 2 or more times in the past year?: No Are you afraid of falling?: No Are you a smoker?: no During the past 4 weeks, how many drinks of wine, beer, or other alcoholic beverages did you have?: 1 drink or less per week Do you exercise for about 20 minutes 3 or more times a week?: yes, some of the time Have you been given information to help with the following?: no: Hazards in your house that might hurt you? and no: Keeping track of your medications? How often do you have trouble taking medicines the way you have been told to take them?: I always take medicine as prescribed How confident are you that you can control & manage most of your health problems?: very confident What is your race?: White Mini Mental State Exam (MMSE) Orientation What is the (year) (season) (date) (day) (month)?: year, season, date, day and month Where are we (state) (county) (town or city) (hospital) (floor)?: state, county, town or city, hospital/clinic and floor Registration Name of 3 unrelated objects clearly and slowly, then ask patient to repeat all 3 of them. (1st repeat determines score. Make sure they can repeat all three): object 1, object 2 and object 3 Attention & Calculation (CHOOSE ONE) Spell WORLD backwards (DLROW): 5 letters Recall Ask patient to repeat the 3 items from question #3.: object 1, object 2 and object 3 Language Show patient a wristwatch & ask what it is. Repeat for pencil.: watch and pencil Ask the patient to repeat the phrase 'No ifs, ands, or buts' after you.: correct Ask the patient to 'take a piece of paper with their right hand' 'fold paper in half' 'place paper on floor': take paper in right hand, fold paper in half and place paper on floor Print the sentence 'CLOSE YOUR EYES' on a piece. If patient actually closes eyes then score.: followed written direction Give patient a blank piece of paper & ask to write a sentence. Score if it contains a noun & verb.: sentence contains subject and verb Score Score: 29 Activity of Daily Living Bathing - sponge bath, tub bath or shower: receives no assistance (gets in/out by self, if usual bathing means Dressing - getting clothes from closets & drawers, including inner/outer garments & fasteners.: gets clothes & gets completely dressed without help Toileting - going to the 'toilet room' for urine/bowel elimination & cleaning self/arranging clothes: goes to toilet room, cleans self, arranges clothes without help Transfer: moves in & out of bed and chair without help (may use support object) Continence: controls urination/bowel movements completely by self Feeding: feeds self without help Total Score: 0 Information obtained from: patient Using telephone: independent Traveling: independent Shopping: independent Preparing meals: independent Housework: independent Taking medicine: independent Managing money: independent PHQ-9 Over the last 2 weeks, how often have you been bothered by any of the following problems? 1. Little interest or pleasure in doing things: several days 2. Feeling down, depressed, or hopeless: not at all 3. Trouble falling or staying asleep, or sleeping too much: not at all 4. Feeling tired or having little energy: several days 5. Poor appetite or overeating: not at all 6. Feeling bad about yourself - or that you are a failure or have let yourself or your family down: not at all 7. Trouble concentrating on things, such as reading the newspaper or watching television: not at all 8. Moving or speaking so slowly that other people could have noticed. Or the opposite - being so fidgety or restless that you have been moving around a lot more than usual: not at all 9. Thoughts that you would be better off or of hurting yourself in some way: not at all Total score: 2 Depression Screening Interpretation: Negative Depression Screening Done: Yes Source: Developed by Drs. Sammy Dumas, Cary Mccormack, Davidson Blake and colleagues, with an educational zhanna from [employer]. Review of Systems Const All systems reviewed & are unremarkable except as noted in HPI and below Reports no additional complaints Eyes Reports no additional complaints ENT Reports no additional complaints Card Reports no additional complaints Resp Reports no additional complaints GI Reports no additional complaints Reports no additional complaints Physical Exam Vital Signs: Last Vital Signs Pulse 80 11/02/23 12:57 BP 120/70 11/02/23 12:57 Pulse Ox 98 11/02/23 12:57 Oxygen Delivery Method Room Air 11/02/23 12:57 BMI result Body Mass Index 22.3 Const General: no acute distress HEENT Head: Yes normal to inspection Ears: hearing grossly normal bilaterally Neck Neck: Yes no lymphadenopathy and Yes supple Resp Effort & Inspection: normal respiratory effort Auscultation: clear to auscultation bilaterally Cardio Rhythm: regular rhythm Heart sounds: S1 normal heart sound present and S2 normal heart sound present GI Inspection: Yes normal to inspection Palpation (GI): Soft to palpation Percussion: Yes normal to percussion Auscultation: normal bowel sounds Extrem General: Yes no clubbing, cyanosis or edema Assessment & Plan Assessment & Plan (1) Addisons disease: Comment: follow-up with [facility] Endocrinology Code(s): E27.1 - Primary adrenocortical insufficiency Plan: Continue current medications follow-up with endocrinology (2) HTN (hypertension): Code(s): I10 - Essential (primary) hypertension Plan: Blood pressure is low today and patient has been feeling tired, she will hold nifedipine for a week and have blood pressure check in 1 week. (3) Hypothyroidism: Comment: Follow-up with [facility] Endocrinology Code(s): E03.9 - Hypothyroidism, unspecified Plan: Continue levothyroxine check TSH (4) Annual physical exam: Code(s): Z00.00 - Encounter for general adult medical examination without abnormal findings Plan: Well-balanced diet regular physical activity discussed with the patient she will return for fasting blood work. (5) SOB (shortness of breath): Code(s): R06.02 - Shortness of breath Plan: Patient will return for fasting blood work tomorrow if her symptoms persist chest x-ray will be obtained. Orders: Orders Comprehensive Met. Panel Today E03.9 - Hypothyroidism, unspecified, E27.1 - Primary adrenocortical insufficiency, I10 - Essential (primary) hypertension, R06.02 - Shortness of breath, Z00.00 - Encounter for general adult medical examination without abnormal findings D Dimer High Sensitivity Today E03.9 - Hypothyroidism, unspecified, E27.1 - Primary adrenocortical insufficiency, I10 - Essential (primary) hypertension, R06.02 - Shortness of breath, Z00.00 - Encounter for general adult medical examination without abnormal findings Troponin-I High Sensitivity Today E03.9 - Hypothyroidism, unspecified, E27.1 - Primary adrenocortical insufficiency, I10 - Essential (primary) hypertension, R06.02 - Shortness of breath, Z00.00 - Encounter for general adult medical examination without abnormal findings Vitamin B12 and Folate Today E03.9 - Hypothyroidism, unspecified, E27.1 - Primary adrenocortical insufficiency, I10 - Essential (primary) hypertension, R06.02 - Shortness of breath, Z00.00 - Encounter for general adult medical examination without abnormal findings TSH reflex Free T4 Today E03.9 - Hypothyroidism, unspecified, E27.1 - Primary adrenocortical insufficiency, I10 - Essential (primary) hypertension, R06.02 - Shortness of breath, Z00.00 - Encounter for general adult medical examination without abnormal findings UA w Microscopic Today E03.9 - Hypothyroidism, unspecified, E27.1 - Primary adrenocortical insufficiency, I10 - Essential (primary) hypertension, R06.02 - Shortness of breath, Z00.00 - Encounter for general adult medical examination without abnormal findings AMB EKG-In Office Today R00.2 - Palpitations, R06.02 - Shortness of breath Lipid Panel Today E03.9 - Hypothyroidism, unspecified, E27.1 - Primary adrenocortical insufficiency, I10 - Essential (primary) hypertension, R06.02 - Shortness of breath, Z00.00 - Encounter for general adult medical examination without abnormal findings Complete Blood Count Auto Diff Today E03.9 - Hypothyroidism, unspecified, E27.1 - Primary adrenocortical insufficiency, I10 - Essential (primary) hypertension, R06.02 - Shortness of breath, Z00.00 - Encounter for general adult medical examination without abnormal findings IRON PROFILE Today E03.9 - Hypothyroidism, unspecified, E27.1 - Primary adrenocortical insufficiency, I10 - Essential (primary) hypertension, R06.02 - Shortness of breath, Z00.00 - Encounter for general adult medical examination without abnormal findings Cortisol, Free Today E03.9 - Hypothyroidism, unspecified, E27.1 - Primary adrenocortical insufficiency, I10 - Essential (primary) hypertension, R06.02 - Shortness of breath, Z00.00 - Encounter for general adult medical examination without abnormal findings Quality Reporting (2019) Depression/Bipolar (159/160/161/177) PHQ-9: Total score: 2 Coding Level of Care Code Medicare Subsequent (G0439) Diagnoses Addisons disease E27.1 HTN (hypertension) I10 Hypothyroidism E03.9 Annual physical exam Z00.00 SOB (shortness of breath) R06.02 CPT Codes Advance Care Planning - Advance Care Planning discussion: On file, no changes ([id number]) Advance Care Planning - Time spent: 1-15 minutes, on File ([id number]) Advance Care Planning Advance Care Planning discussion: On file, no changes Forms completed: Health Care Proxy Time spent: 1-15 minutes, on File
== END 2023-11-02 15:30 | disposition home or self-care (01) ==
PROVIDERS: PCP Internal Medicine; Visit Provider Internal Medicine
DX: Z00.00 Encounter for general adult medical examination without abnormal findings (principal); E27.1 Primary adrenocortical insufficiency; I10 Essential (primary) hypertension; E03.9 Hypothyroidism, unspecified; R06.02 Shortness of breath
CPT/HCPCS: 1123F; G0439

== ENCOUNTER 2023-11-03 09:34 | Outpatient (REF) | payer MEDICARE, SELFPAY ==
[2023-11-03 13:02] LABS: MANUAL DIFF FLAG NO
[2023-11-03 13:21] LABS: Basophils Percent Auto 0.4 % (0-2); D Dimer High Sensitivity 286 NG/ML; Eosinophils Absolute Auto 0.2 X10*3/uL (0.0-0.4); Eosinophils Percent Auto 2.9 % (0-4); Hematocrit 37.1 % (37.0-47.0); Hemoglobin 12.2 g/dl (12.0-16.0); Imm Gran Abs Auto 0.01 X10*3/uL (0.00-0.03); Imm Gran Pct Auto 0.2 % (0.0-0.4); Lymphocytes Absolute Auto 2.2 X10*3/uL (1.2-4.9); Lymphocytes Percent Auto 41.9 % (20-40); Mean Corpuscular HGB Conc 32.9 g/dl (31.0-35.0); Mean Corpuscular Hemoglobin 30.7 pg (27.0-33.0); Mean Corpuscular Volume 93.2 fL (80.0-98.0); Monocytes Percent Auto 18.1 % (2-11); Neutrophils Absolute Auto 1.9 x10*3/uL (2.0-8.3); Neutrophils Percent Auto 36.5 % (45-73); Platelet Count 232 X10*3/uL (160-400); Red Blood Count 3.98 X10*6/uL (4.20-5.50); Red Cell Distribution Width 12.6 % (11.0-16.0); White Blood Count 5.3 X10*3/uL (4.8-10.8)
[2023-11-03 13:30] LABS: Appearance Urine Cloudy; Color Urine Yellow; Glucose Urine UA Negative (Negative); Leukocyte Esterase Urine Moderate (2+) (Negative); Nitrite Urine Negative (Negative); PH 5.5 (5.0-9.0); UMIC TRIGGER UA YES; Urine Blood Negative (Negative); Urine Ketones Negative (Negative); Urine Protein Negative (Neg-Trace)
[2023-11-03 13:49] LABS: Alanine Aminotransferase 7 U/L (0-31); Alkaline Phosphatase 59 U/L (39-117); Anion Gap 12 (12-20); Aspartate Amino Transferase 16 U/L (5-31); Bilirubin Total 0.7 mg/dL (0.0-1.0); Blood Urea Nitrogen 18 mg/dL (9-16); Calcium 9.9 mg/dL (8.4-10.2); Carbon Dioxide 27 mmol/L (22-29); Chloride 102 mmol/L (96-108); Cholesterol 198 mg/dL (<200); Estimated Glomerular Filt Rate > 60; Glucose Fasting 83 mg/dL (60-99); Glucose Random 82 mg/dL (60-115); HDL Cholesterol 60 mg/dL (>40); Iron 49 mcg/dL (30-160); LDL Cholesterol Calculated 124 mg/dL (<100); Percent Iron Saturation 24 % (15-50); Sodium 137 mmol/L (135-145); Total Iron Binding Capacity 207 mcg/dL (228-428); Total Protein 7.7 g/dL (6.5-8.0); Triglycerides 70 mg/dL (<150); Unsaturated Iron Binding 158 ug/dL
[2023-11-03 14:06] LABS: Bacteria Urine 2+ (None Seen); Hyaline Casts Urine 0-2 /LPF (0-2); RBC Urine 0-2 /HPF (0-2)
[2023-11-03 14:10] LABS: Troponin-I High Sensitivity < 2.7 ng/L (<3.5-17.0)
[2023-11-03 14:37] LABS: TSH reflex Free T4 1.03 uIU/mL (0.32-4.0)
[2023-11-03 14:44] LABS: Vitamin B12 237 pg/mL (200-900)
[2023-11-05 14:54] LABS: IgA 388 mg/dL (70-320); IgG 1705 mg/dL (600-1540); IgM 154 mg/dL (50-300)
== END 2023-11-03 09:35 | disposition home or self-care (01) ==
LOC: HO.HMGCLDS 09:34
PROVIDERS: PCP Internal Medicine; Visit Provider Internal Medicine
DX: Z00.00 Encounter for general adult medical examination without abnormal findings (principal); E03.9 Hypothyroidism, unspecified; I10 Essential (primary) hypertension; R06.02 Shortness of breath; E27.1 Primary adrenocortical insufficiency
CPT/HCPCS: 36415; 80053; 80061; 81001; 82530; 82607; 82746; 82784; 83540; 84443; 84484; 85025; 85379; 86334

== ENCOUNTER 2023-12-23 09:41 | Outpatient (REF) | payer MEDICARE, SELFPAY ==
[2023-12-23 14:19] LABS: Cortisol Random < 1.0 ug/dL
== END 2023-12-23 09:42 | disposition home or self-care (01) ==
LOC: HO.HMGCLDS 09:41
PROVIDERS: PCP Internal Medicine; Visit Provider Internal Medicine
DX: E27.1 Primary adrenocortical insufficiency (principal)
CPT/HCPCS: 36415; 82533

== ENCOUNTER → 2023-12-30 12:38 | Outpatient (AMB) | payer MEDICARE, SELFPAY ==
[2023-12-30 12:44] VITALS: BP 128/76; PULSE 79; O2SAT 99; BMI 22.0
--- NOTE | 2023-12-30 12:44 | A.OFFPC_ITS ---
Vital Signs 12/30/23 12:44 Height 5 ft 5 in Weight 132 lb BMI 22.0 BP 128/76 Blood Pressure Location Lt brachial Position Sitting Pulse 79 Pulse Source Pulse Oximeter Pulse Oximetry (%) 99 Oxygen Delivery Method Room Air Intake Visit Reasons: 1 month follow up Allergies No Known Allergies Allergy (Verified 12/30/23 12:48) Medication List - Last Reconciled 12/30/23 by Michelle Álvarez MD calcium carbonate 600 mg PO DAILY cholecalciferol (vitamin D3) 75 mcg PO DAILY fludrocortisone 0.1 mg PO DAILY hydrocortisone mg PO levothyroxine 88 mcg PO DAILY nifedipine ER 30 mg PO DAILY pantoprazole mg PO Tobacco use date assessed: 12/30/23 Fall risk assessment: No Falls in past year Last assessed Fall Risk: 12/30/23 Dental Screening Dental Screen Date: 12/30/23 Did you have a dental visit in the last 12 months?: Yes Did you have a dental problem in the last 6 months where you did not have access to dental care?: No Was dental information given to patient?: Patient has dentist HPI 1 month follow up HPI Details Pt presents for f/u HTN, Sullivan disease, hypothyroid. Patient broke up with her partner and is moving back to this area. She has been looking for a new home living with her daughter in the meantime. She reports being under stress and having insomnia episodes. Patient denies depression. [facility] Medical History Vaginal pessary present Human papilloma virus (HPV) DNA test negative Osteopenia Annual physical exam Microscopic hematuria Osteopenia Hypothyroidism Kathleen syndrome HTN (hypertension) Addisons disease Surgical History History of lung surgery History of esophagogastroduodenoscopy (EGD) H/O colonoscopy Family History Father No problems noted. Mother No problems noted. Social History Housing: House Alcohol intake: current Alcohol intake frequency: holidays/special occasions only Patient Tobacco Use Status: Never used Tobacco e-Cigarette/Vaping Use: Never Used service: No Current occupational status: retired Cognitive needs: No Hearing needs: No Vision needs: No Questionnaire PHQ-9 Over the last 2 weeks, how often have you been bothered by any of the following problems? 1. Little interest or pleasure in doing things: several days 2. Feeling down, depressed, or hopeless: not at all 3. Trouble falling or staying asleep, or sleeping too much: not at all 4. Feeling tired or having little energy: several days 5. Poor appetite or overeating: not at all 6. Feeling bad about yourself - or that you are a failure or have let yourself or your family down: not at all 7. Trouble concentrating on things, such as reading the newspaper or watching television: not at all 8. Moving or speaking so slowly that other people could have noticed. Or the opposite - being so fidgety or restless that you have been moving around a lot more than usual: not at all 9. Thoughts that you would be better off or of hurting yourself in some way: not at all Total score: 2 Depression Screening Interpretation: Negative Depression Screening Done: Yes [id number] - PHQ-9 Billing: Yes Source: Developed by Drs. Sammy Dumas, Cary Mccormack, Davidson Blake and colleagues, with an educational zhanna from [employer]. Thrive Questionnaire Date Thrive assessed: 12/30/23 I am a: Patient What is your living situation today?: I have a steady place to live Within the past 12 months, did the food you bought not last and you didn't have the money to get more?: Never true Within the past 12 months, did you worry whether your food would run out before you got money to buy more?: Never true Do you have trouble paying for medicines?: No Do you have trouble getting transportation to medical appointments?: No Do you have trouble paying your heating and electricity bill?: No Do you have trouble taking care of your child, family member or friend?: No Do you have trouble with day-to-day activities such as bathing, preparing meals, shopping, managing finances, etc.?: No Are you currently unemployed and looking for a job?: No Are you interested in more education?: No Please select the resources that you would like help with: None Currently or been in a relationship where the following occur: No concerns reported THRIVE Score: 0 AUDIT C Alcohol Use Questionnaire (AUDIT-C) 1. How often do you have a drink containing alcohol?: Monthly or less 2. How many drinks containing alcohol do you have on a typical day when you are drinking?: 1 or 2 3. How often do you have six or more drinks on one occasion?: Never Total Score: 1 SENIA-7 AMB Questionnaire SENIA-7 Date SENIA - 7 assessed: 12/30/23 Feeling nervous, anxious, or on edge: 0 = Not at all Not being able to stop or control worryin = Not at all Worrying too much about different things: 0 = Not at all Trouble relaxin = Not at all Being so restless that it is hard to sit still: 0 = Not at all Becoming easily annoyed or irritable: 0 = Not at all Feeling afraid as if something awful might happen: 0 = Not at all Total SENIA-7 score (0-4 normal; 5-9 mild; 10-14 moderate; 15-21 severe): 0 Source: Developed by Drs. Sammy Dumas, Cary Mccormack, Davidson Blake and colleagues, with an educational zhanna from [employer]. SENIA-7 Assessment Billing SENIA-7 Assessment Tool: SENIA-7 Assessment 18974 Review of Systems Const All systems reviewed & are unremarkable except as noted in HPI and below ENT Reports no additional complaints Resp Reports no additional complaints GI Reports no additional complaints Reports no additional complaints Physical exam (Primary Care) Vital Signs: Last Vital Signs Pulse 79 12/30/23 12:44 BP 128/76 12/30/23 12:44 Pulse Ox 99 12/30/23 12:44 Oxygen Delivery Method Room Air 12/30/23 12:44 BMI result Body Mass Index 22.0 Tobacco/Smoking Status: Tobacco use Status Tobacco use date assessed 12/30/23 12/30/23 12:53 Patient Tobacco Use Status Never used Tobacco 12/30/23 12:53 e-Cigarette/Vaping Use Never Used 12/30/23 12:45 PHQ-9: PHQ-9 Score PHQ-9: Total score 2 12/30/23 13:15 Depression Screening Interpretation: Negative Thrive Assessment: Date of Thrive Assessment Date Thrive assessed 12/30/23 12/30/23 12:53 Currently or been in a relationship where the following occur: No concerns reported Const General: no acute distress HENMT Head: Yes normal to inspection Throat: Yes posterior oropharynx normal Neck Neck: Yes supple Resp Effort & Inspection: normal respiratory effort Auscultation: clear to auscultation bilaterally Cardio Rhythm: regular rhythm Heart sounds: S1 normal heart sound present and S2 normal heart sound present GI Inspection: Yes normal to inspection Palpation (GI): Soft to palpation Percussion: Yes normal to percussion Auscultation: normal bowel sounds Assessment and Plan Assessment & Plan (1) Hypothyroidism: Comment: Follow-up with [facility] Endocrinology Code(s): E03.9 - Hypothyroidism, unspecified Plan: Continue levothyroxine (2) HTN (hypertension): Code(s): I10 - Essential (primary) hypertension Plan: Continue nifedipine (3) Addisons disease: Comment: follow-up with [facility] Endocrinology Code(s): E27.1 - Primary adrenocortical insufficiency Plan: Follow-up with endocrinology continue same medications (4) Anxiety: Code(s): F41.9 - Anxiety disorder, unspecified Plan: Stress management discussed with the patient she will be established with a counselor Orders: Orders Comprehensive [place]. Panel Fast 10 Months E03.9 - Hypothyroidism, unspecified, E27.1 - Primary adrenocortical insufficiency, I10 - Essential (primary) hypertension TSH reflex Free T4 10 Months E03.9 - Hypothyroidism, unspecified, E27.1 - Primary adrenocortical insufficiency, I10 - Essential (primary) hypertension Lipid Panel 10 Months E03.9 - Hypothyroidism, unspecified, E27.1 - Primary adrenocortical insufficiency, I10 - Essential (primary) hypertension Complete Blood Count Auto Diff 10 Months E03.9 - Hypothyroidism, unspecified, E27.1 - Primary adrenocortical insufficiency, I10 - Essential (primary) hypertension Coding Level of Care Code Est Pt Level 4 (42423) Diagnoses Hypothyroidism E03.9 HTN (hypertension) I10 Addisons disease E27.1 Anxiety F41.9 Additional Codes SENIA-7 Assessment Billing - SENIA-7 Assessment Tool: SENIA-7 Assessment 41971 ([id number])
== END ==
PROVIDERS: PCP Internal Medicine; Visit Provider Internal Medicine
DX: E03.9 Hypothyroidism, unspecified (principal); I10 Essential (primary) hypertension; E27.1 Primary adrenocortical insufficiency; F41.9 Anxiety disorder, unspecified
CPT/HCPCS: 99214

== ENCOUNTER 2024-06-08 10:52 | Outpatient (AMB) | payer MEDICARE, SELFPAY ==
--- NOTE | 2024-06-08 10:57 | MHC.PC.OV ---
Vital Signs 06/08/24 11:00 Height 5 ft 5 in Weight 128 lb BMI 21.3 BP 120/80 Blood Pressure Location Rt brachial Position Sitting Pulse 73 Pulse Source Pulse Oximeter Temp 97.9 F Temp Source Oral Pulse Oximetry (%) 98 Intake Visit Reasons: HDF [place] in [facility], bringing records Allergies No Known Allergies Allergy (Verified 06/08/24 11:00) Medication List - Last Reconciled 06/08/24 by Michelle Álvarez MD apixaban (Eliquis) 5 mg PO BID calcium carbonate 600 mg PO DAILY cholecalciferol (vitamin D3) 75 mcg PO DAILY fludrocortisone 0.1 mg PO DAILY hydrocortisone mg PO levothyroxine 88 mcg PO DAILY nifedipine ER 30 mg PO DAILY pantoprazole mg PO sertraline 50 mg PO DAILY Tobacco use date assessed: 06/08/24 Fall risk assessment: No Falls in past year Last assessed Fall Risk: 06/08/24 Dental Screening Dental Screen Date: 06/08/24 Did you have a dental visit in the last 12 months?: Yes Did you have a dental problem in the last 6 months where you did not have access to dental care?: No Was dental information given to patient?: Patient has dentist HPI F [place] in [facility], bringing records HPI Details Patient presents for the follow-up of hospitalization in the room by hospital for [place] crisis. Patient developed progressive weakness preceded by intermittent diarrhea for 1 week. Patient was found unresponsive in her hotel room and was taken to the hospital. Patient was treated in ICU for [place]'s crisis. She had a brief episodes of AFib. Patient recovered completely. She is feeling better but still weak. She had a follow-up with manager wound care yesterday and has been taking high dose of hydrocortisone 25 mg twice a day for 4 days and then she will follow-up to adjust the dose. Patient was started on Eliquis. She denies symptoms of palpitations irregular heartbeat shortness or breath PND orthopnea. She had echocardiogram done in the hospital which showed normal ejection fraction no significant valvular abnormalities. Patient also had a CTA chest negative for PE. Hypothyroidism and hypertension are controlled on current medications. [facility] Medical History (Updated 06/08/24 @ 12:57 by Michelle Álvarez MD) Vaginal pessary present Human papilloma virus (HPV) DNA test negative Osteopenia Annual physical exam Microscopic hematuria Osteopenia Hypothyroidism Kathleen syndrome HTN (hypertension) Addisons disease Surgical History History of lung surgery History of esophagogastroduodenoscopy (EGD) H/O colonoscopy Family History Father No problems noted. Mother No problems noted. Social History Housing: House Alcohol intake: current Alcohol intake frequency: holidays/special occasions only Patient Tobacco Use Status: Never used Tobacco e-Cigarette/Vaping Use: Never Used service: No Current occupational status: retired Cognitive needs: No Hearing needs: No Vision needs: No Questionnaire PHQ-9 Over the last 2 weeks, how often have you been bothered by any of the following problems? 1. Little interest or pleasure in doing things: several days 2. Feeling down, depressed, or hopeless: not at all 3. Trouble falling or staying asleep, or sleeping too much: not at all 4. Feeling tired or having little energy: several days 5. Poor appetite or overeating: not at all 6. Feeling bad about yourself - or that you are a failure or have let yourself or your family down: not at all 7. Trouble concentrating on things, such as reading the newspaper or watching television: not at all 8. Moving or speaking so slowly that other people could have noticed. Or the opposite - being so fidgety or restless that you have been moving around a lot more than usual: several days 9. Thoughts that you would be better off or of hurting yourself in some way: not at all Total score: 3 Depression Screening Interpretation: Negative Depression Screening Done: Yes 68482 - PHQ-9 Billing: Yes Source: Developed by Drs. Sammy Dumas, Cary Mccormack, Davidson Blake and colleagues, with an educational zhanna from [employer]. Thrive Questionnaire Date Thrive assessed: 06/06/24 I am a: Patient What is your living situation today?: I have a steady place to live Within the past 12 months, did the food you bought not last and you didn't have the money to get more?: Never true Within the past 12 months, did you worry whether your food would run out before you got money to buy more?: Never true Do you have trouble paying for medicines?: No Do you have trouble getting transportation to medical appointments?: No Do you have trouble paying your heating and electricity bill?: No Do you have trouble taking care of your child, family member or friend?: No Do you have trouble with day-to-day activities such as bathing, preparing meals, shopping, managing finances, etc.?: No Are you currently unemployed and looking for a job?: No Are you interested in more education?: No Please select the resources that you would like help with: None Currently or been in a relationship where the following occur: No concerns reported THRIVE Score: 0 AUDIT C Alcohol Use Questionnaire (AUDIT-C) 1. How often do you have a drink containing alcohol?: Monthly or less 2. How many drinks containing alcohol do you have on a typical day when you are drinking?: 1 or 2 3. How often do you have six or more drinks on one occasion?: Never Total Score: 1 SENIA-7 AMB Questionnaire SENIA-7 Date SENIA - 7 assessed: 12/30/23 Feeling nervous, anxious, or on edge: 1 = Several days Not being able to stop or control worryin = Not at all Worrying too much about different things: 1 = Several days Trouble relaxin = Several days Being so restless that it is hard to sit still: 0 = Not at all Becoming easily annoyed or irritable: 0 = Not at all Feeling afraid as if something awful might happen: 0 = Not at all Total SENIA-7 score (0-4 normal; 5-9 mild; 10-14 moderate; 15-21 severe): 3 Source: Developed by Drs. Sammy Dumas, Cary Mccormack, Davidson Blake and colleagues, with an educational zhanna from [employer]. Review of Systems Const All systems reviewed & are unremarkable except as noted in HPI and below Eyes Reports no additional complaints ENT Reports no additional complaints Card Reports no additional complaints Resp Reports no additional complaints GI Reports no additional complaints Reports no additional complaints Physical exam (Primary Care) Vital Signs: Last Vital Signs Temp 97.9 F 06/08/24 11:00 Pulse 73 06/08/24 11:00 BP 150/80 H 06/08/24 11:00 Pulse Ox 98 06/08/24 11:00 BMI result Body Mass Index 21.3 Tobacco/Smoking Status: Tobacco use Status Tobacco use date assessed 06/08/24 06/08/24 11:03 Patient Tobacco Use Status Never used Tobacco 06/08/24 10:58 e-Cigarette/Vaping Use Never Used 06/08/24 10:58 PHQ-9: PHQ-9 Score PHQ-9: Total score 3 06/08/24 11:03 Depression Screening Interpretation: Negative Thrive Assessment: Date of Thrive Assessment Date Thrive assessed 06/06/24 06/08/24 10:58 Currently or been in a relationship where the following occur: No concerns reported Const General: no acute distress HENMT Head: Yes normal to inspection Face and sinus: Yes normal facial exam Eyes General: appearance normal, both eyes and all related structures Neck Neck: Yes no lymphadenopathy and Yes supple Resp Effort & Inspection: normal respiratory effort Auscultation: clear to auscultation bilaterally Cardio Rhythm: regular rhythm Heart sounds: S1 normal heart sound present and S2 normal heart sound present GI Inspection: Yes normal to inspection Palpation (GI): Soft to palpation Percussion: Yes normal to percussion Auscultation: normal bowel sounds Coding Level of Care Code Est Pt Level 4 (18246) Diagnoses Paroxysmal A-fib I48.0 Addisons disease E27.1 HTN (hypertension) I10 Hypothyroidism E03.9 Additional Codes PHQ-9 - 39444 - PHQ-9 Billing: Yes ([id number]) Assessment & Plan Assessment & Plan (1) Paroxysmal A-fib: Comment: While hospitalized in ICU in [facility] for [place] crisis 05/2024 Code(s): I48.0 - Paroxysmal atrial fibrillation Category: Medical Plan: Continue Eliis obtain 12 day Holter monitor follow-up in 1 month (2) Addisons disease: Comment: follow-up with [facility], [place] crisis in [facility] 05/2024 Code(s): 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 - Primary adrenocortical insufficiency Category: Medical Plan: Follow-up with manager wound care currently on hydrocortisone 25 mg twice a day for 4 days and fludrocortisone (3) HTN (hypertension): Code(s): I10 - Essential (primary) hypertension Category: Medical Plan: Continue nifedipine (4) Hypothyroidism: Comment: Follow-up with [facility] Code(s): E03.9 - Hypothyroidism, unspecified Category: Medical Plan: Continue levothyroxine follow-up in 1 month with a fasting labs before Orders: Orders Lipid Panel 1 Month E03.9 - Hypothyroidism, unspecified, E27.1 - Primary adrenocortical insufficiency, I10 - Essential (primary) hypertension, I48.0 - Paroxysmal atrial fibrillation TSH reflex Free T4 1 Month E03.9 - Hypothyroidism, unspecified, E27.1 - Primary adrenocortical insufficiency, I10 - Essential (primary) hypertension, I48.0 - Paroxysmal atrial fibrillation ECG 14 day holter monitor Today I48.0 - Paroxysmal atrial fibrillation Comprehensive Met. Panel 1 Month E03.9 - Hypothyroidism, unspecified, E27.1 - Primary adrenocortical insufficiency, I10 - Essential (primary) hypertension, I48.0 - Paroxysmal atrial fibrillation Complete Blood Count Auto Diff 1 Month E03.9 - Hypothyroidism, unspecified, E27.1 - Primary adrenocortical insufficiency, I10 - Essential (primary) hypertension, I48.0 - Paroxysmal atrial fibrillation Cortisol, Free 1 Month E03.9 - Hypothyroidism, unspecified, E27.1 - Primary adrenocortical insufficiency, I10 - Essential (primary) hypertension, I48.0 - Paroxysmal atrial fibrillation
[2024-06-08 11:00] VITALS: BP 120/80; PULSE 73; TEMP 36.6; O2SAT 98; BMI 21.3
--- OUTSIDE RECORDS SUMMARY | 2024-06-08 12:04 | XMS_ITS | Clinical Summary ---
Author Organization [employer] Address [address] [place] [address] Care Team Providers Care Hvac Service Tech Name Role Phone Pcp, No Primary Care Provider [phone] Medications estradioL (ESTRACE) 0.01 % (0.1 mg/gram) vaginal cream 5ML VAGINALLY EVERY OTHER NIGHT AT BEDTIME 1 Active fludrocortisone (FLORINEF) 0.1 mg tablet 1 Active hydrocortisone (CORTEF) 5 MG tablet 1 Active levothyroxine 88 MCG tablet 1 Active NIFEdipine (PROCARDIA XL) 30 MG 24 hr tablet TAKE 1 TABLET BY MOUTH ONCE DAILY FOR 90 DAYS 1 Active pantoprazole (PROTONIX) 40 MG tablet TAKE 1 TABLET BY MOUTH TWICE DAILY 1 Active Social History Tobacco Use Types Packs/Day Years Used Date Smoking Tobacco: Never Assessed Comments Unknown Sex and Gender Information Value Date Recorded Sex Assigned at Not on file Legal Sex Female 2:06 AM EDT Gender Identity Not on file Sexual Orientation Not on file Last Filed Vital Signs Vital Sign Reading Time Taken Comments Blood Pressure - - Pulse 83 12/24/2020 10:47 AM EDT Temperature 36.4 ??C (97.5 ??F) 12/24/2020 10:47 AM E DT Respiratory Rate - - Oxygen Saturation 97% 12/24/2020 10:47 AM EDT Inhaled Oxygen Concentration - - Weight - - Height - - Body Mass Index - - Plan of Treatment Health Maintenance Due Date Last Done Comments Colorectal Cancer: COLONOSCO PY Screening every 10 yrs (or Modifier) 1950 Depression: Screening Annual ly using PHQ-2/9 in Adults 18 yrs or above (or HM Modifier)([facility]) 07/31/1969 Hepatitis C Virus Infection in Adolescents and Adults: Screening (or Modifier) ([facility]) 07/31/1969 SDOH Screening Reminder: Symone lynch for all adults ([facility]) 07/31/1969 Tobacco Smoking Cessation: i n Adults excluding Women: Behavioral and Pharmacotherapy Interventions ([facility]) 07/31/1969 DTaP/Tdap/Td Vaccines ([facility]) (1 - Tdap) 07/31/1970 Colorectal Cancer Screening 45 -75 Yrs (or HM Modifier ) 07/31/1996 Colorectal Cancer: FLEXIBLE SIGMOIDOSCOPY Screening every 5 yrs 07/31/1996 Colorectal Cancer: Fecal Imm unochemical Test (FIT) Annually [facility] 07/31/1996 Colorectal Cancer: High-sens itivity gFOBT Screening Annually [facility] 07/31/1996 Colorectal Cancer: Stool Col oguard Screening every 3 yrs 07/31/1996 Colorectal Cancer:CT Colonography Screening every 5 yr s 07/31/1996 Lipid Screening: Every 5 yrs for Women aged 45+ (or HM Modifier) ([facility]) 07/31/1997 Breast Cancer: Screening Symone lynch age 50-74 yrs (or HM Modifier)([facility]) 07/31/2001 Zoster/Shingles Vaccine Seri es Screening: Adults aged 18+ yrs (or HM Modifiers)([facility]) (1 of 2) 07/31/2001 Osteoporosis Screening to Pr event Fractures: Women aged 65 years+ ([facility]) 07/31/2016 Pneumococcal Vaccination Scr eening: Patients 65+ yrs of age ([facility]) (1 of 1 - PCV) 07/31/2016 Flu Vaccination: Ages 65+: Y early High Dose Recommended (or Modifier)([facility]) 11/18/2023 COVID-19 Vaccine Screening: Initial Series and Booster Status ([facility]) ( - 2023-25 season) 2023 RSV Vaccines (1 - 1-dose 75+ series) 07/31/2026 Medical Devices Not on file [place] [address] MEDICARE Care Teams Hvac Service Tech Relationship Specialty Start Date End Date Pcp, No PCP - General Family Medicine 12/24/20
--- OUTSIDE RECORDS SUMMARY | 2024-06-08 12:04 | XMS_ITS | Clinical Summary ---
Author Organization [facility] Address [address] [place] [address] Care Team Providers Care Receptionist Secretary Name Role Phone Michelle Álvarez Unavailable Guido Fitzgerald MD Unavailable [phone] Social History Tobacco Use Types Packs/Day Years Used Date Smoking Tobacco: Never Assessed Comments Unknown Sex and Gender Information Value Date Recorded Sex Assigned at Female 06/03/2023 11:36 PM EST Legal Sex Female 11:36 PM EST Gender Identity Female 06/03/2023 11:36 PM EST Sexual Orientation Not on file Last Filed Vital Signs Vital Sign Reading Time Taken Comments Blood Pressure - - Pulse - - Temperature - - Respiratory Rate - - Oxygen Saturation - - Inhaled Oxygen Concentration - - Weight 61.2 kg (135 lb) 03/22/2023 12:0 0 AM EST Legacy value: 135 lbs Height - - Body Mass Index - - Plan of Treatment Health Maintenance Due Date Last Done Comments Blood Pressure 1950 Lipid Panel 1950 Depression Screening 1955 Hepatitis C Screening 07/31/1969 DTaP,Tdap,and Td Vaccines (1 - Tdap) 07/31/1970 Breast Cancer Screening 1991 CT Colonography 07/31/1996 Colonoscopy 07/31/1996 Colorectal Cancer Screening 07/31/1996 FIT 07/31/1996 FOBT 07/31/1996 Multitarget Stool DNA (Cologuard) 07/31/1996 Sigmoidoscopy 07/31/1996 Zoster Vaccine (1 of 2) 07/31/2001 Osteoporosis Screening 07/31/2016 Pneumococcal Vaccine: 65+ Ye ars (1 of 1 - PCV) 07/31/2016 COVID-19 Vaccine (2023-2 5 season) 2023 Influenza Vaccine (#1) 2023 Meningococcal Vaccines Aged Out No lo nger eligible based on patient's age to complete this topic Care Teams Receptionist Secretary Relationship Specialty Start Date End Date Preeti Michelle [address] [place] [address] PCP - Insurance Assigned PCP 03/22/23 Guido Fitzgerald MD [address] [place] [address] Neurology 09/18/23
== END 2024-06-08 11:56 | disposition home or self-care (01) ==
PROVIDERS: PCP Internal Medicine; Visit Provider Internal Medicine
DX: I48.0 Paroxysmal atrial fibrillation (principal); E27.1 Primary adrenocortical insufficiency; I10 Essential (primary) hypertension; E03.9 Hypothyroidism, unspecified

== ENCOUNTER → 2024-06-08 10:52 | Outpatient (BNVA) | payer MEDICARE, SELFPAY | PROVIDERS: PCP Internal Medicine; Visit Provider Internal Medicine | DX: I48.0 Paroxysmal atrial fibrillation (principal); E27.1 Primary adrenocortical insufficiency; E03.9 Hypothyroidism, unspecified; I10 Essential (primary) hypertension | CPT/HCPCS: 96127; 99212 ==

== ENCOUNTER → 2024-06-13 10:14 | Outpatient (REF) | payer MEDICARE, SELFPAY ==
--- OUTSIDE RECORDS SUMMARY | 2024-06-13 12:01 | XMS_ITS | Clinical Summary ---
Author Organization [facility] Address [address] [place] [address] Care Team Providers Care Service Tech Name Role Phone Michelle Álvarez Unavailable Guido Fitzgerald MD Unavailable [phone] Social History Tobacco Use Types Packs/Day Years [...] age to complete this topic Care Teams Service Tech Relationship Specialty Start Date End Date Preeti Michelle 1960 [place] [address] PCP - Insurance Assigned PCP 03/22/23 Guido Fitzgerald MD [address] [place] [id number] Neurology 09/18/23
--- OUTSIDE RECORDS SUMMARY | 2024-06-13 12:01 | XMS_ITS | Clinical Summary ---
Author Organization [facility] Address [phone] Formerly [facility] [place] [address] Care Team Providers Care Department Clerk Name Role Phone Michelle Álvarez MD Primary Care Provider [phone] Allergies No known active allergies Medications Medication Sig Dispensed Refills Start Date End Date Status hydrocortisone (CORTEF) 5 MG tablet 11/26/2020 Active levothyroxine (SYNTHROID, LEVOTHROID) 88 MCG tablet 11/16/2020 Active fludrocortisone (FLORINEF) 0.1 mg tablet 11/26/2020 Active NIFEdipine (PROCARDIA XL) 30 MG 24 hr tablet Take 30 mg by mouth daily. 08/15/2021 Active pantoprazole (PROTONIX) 40 MG tablet Take 1 tablet by mouth 2 (two) times a day. 10/10/2020 Active albuterol 90 mcg/actuation inhalerIndications: Cough,Wheezing Inhale 2 puffs into the lungs every 4 (four) hours as needed for wheezing. 8 g 09/02/2021 Active Additional Information Patient not taking.Reported on 04/03/2023 doxycycline monohydrate (MONODOX) 100 MG capsule Take 1 capsule (100 mg total) by mouth 2 (two) times a day. 14 capsule 04/03/2023 Active levalbuterol (XOPENEX HFA) 45 mcg/actuation inhalerIndications: Cough Inhale 1-2 puffs into the lungs every 6 (six) hours as needed for wheezing. 15 g 08/08/2023 Active doxycycline monohydrate (MONODOX) 100 MG capsule Take 1 capsule (100 mg total) by mouth 2 (two) times a day. 14 capsule 08/08/2023 Active Active Problems No known active problems Immunizations Name Administration Dates Next Due Influenza High-Dose Quadrivalent Preservative Fr ee IM 01/19/2020 Influenza High-Dose Trivalent Preservative Free IM 02/02/2019,01/13/2017 Influenza Trivalent Adjuvanted Preservative free IM 02/22/2018,01/09/2016 Tdap 09/09/2016 Social History Tobacco Use Types Packs/Day Years Used Date Smoking Tobacco: Never Smokeless Tobacco: Never Education Answer Date Recorded Are you interested in more education? Not on ej e 08/14/2022 Are you concerned about learning? Not on file 08/14/2022 No 08/14/2022 No 08/14/2022 Digital Access Answer Date Recorded No 09/12/2022 No 09/12/2022 Reliable internet access at home? Not on file 09/12/2022 Device with a working camera? Not on file Sex and Gender Information Value Date Recorded Sex Assigned at Not on file Gender Identity Not on file Sexual Orientation Not on file Last Filed Vital Signs Vital Sign Reading Time Taken Comments Blood Pressure 120/68 08/08/2023 11:58 AM EDT Pulse 100 08/08/2023 12:01 PM EDT 100 trending Temperature 36.8 ??C (98.3 ??F) 08/08/2023 11:58 AM E DT Respiratory Rate 23 08/08/2023 11:58 AM EDT Oxygen Saturation 96% 08/08/2023 12:01 PM EDT trending Inhaled Oxygen Concentration - - Weight 61.2 kg (135 lb) 03/18/2021 9:03 AM EST Height - - Body Mass Index - - Plan of Treatment Health Maintenance Due Date Last Done Comments LIPID PANEL 1950 TSH LEVEL 1950 DEPRESSION SCREENING 1963 HEPATITIS B SCREENING 07/31/1969 HEPATITIS C SCREENING 07/31/1969 MAMMOGRAM 1991 COLOGUARD 07/31/1996 COLONOSCOPY 07/31/1996 COLORECTAL CANCER SCREENING 07/31/1996 FIT TEST 07/31/1996 FOBT 07/31/1996 SIGMOIDOSCOPY 07/31/1996 VIRTUAL COLONOSCOPY 07/31/1996 PNEUMOCOCCAL VACCINES (50+ years) (1 of 1 - PCV) 07/31/2001 ZOSTER VACCINES (1 of 2) 07/31/2001 OSTEOPOROSIS SCREENING INITIAL (ONE-TIME) 07/31/2016 INFLUENZA VACCINE (#1) 2023 , 02/02/2019, 02/22/2018, Additional history exists COVID-19 VACCINE ( - 2023- season) 2023 07/16/2020, 06/25/2020 RSV VACCINE (1 - 1-dose 75+ series) 07/31/2026 Adult Td,Tdap Booster 09/09/2026 09/09/2016 SMOKING STATUS SCREENING (Once After 26 Yrs) Completed 04/03/2023 HEPATITIS A VACCINES Aged Out No long er eligible based on patient's age to complete this topic HEPATITIS B VACCINES Aged Out No long er eligible based on patient's age to complete this topic HIB VACCINES Aged Out No longer eligi ble based on patient's age to complete this topic MENINGOCOCCAL VACCINES (ACWY) Aged Out No longer eligible based on patient's age to complete this topic Medical Devices Not on file Care Teams Department Clerk Relationship Specialty Start Date End Date Michelle Álvarez MD [address] [place] [address] PCP - General Internal Medicine 03/18/21 Additional Source Comments The information contained in this document represents components of the legal health record. It is not the complete legal health record.[facility]
--- OUTSIDE RECORDS SUMMARY | 2024-06-13 12:02 | XMS_ITS | Clinical Summary ---
Author Organization [employer] Address [address] [place] [address] Care Team Providers Care Measurement Superintendent Name Role Phone Pcp, No Primary Care Provider [phone] Medications estradioL (ESTRACE) 0.01 % (0.1 mg/gram) [...] Adults 18 yrs or above (or HM Modifier)([facility]) 07/31/1969 Hepatitis C Virus Infection in Adolescents and Adults: Screening (or Modifier) ([facility]) 07/31/1969 SDOH Screening Reminder: Symone lynch for all adults ([facility]) 07/31/1969 Tobacco Smoking Cessation: i n Adults excluding Women: Behavioral and Pharmacotherapy Interventions ([facility]) 07/31/1969 DTaP/Tdap/Td Vaccines ([facility]) (1 - Tdap) 07/31/1970 Colorectal Cancer Screening 45 -75 Yrs (or HM Modifier ) 07/31/1996 Colorectal Cancer: FLEXIBLE SIGMOIDOSCOPY Screening every 5 yrs 07/31/1996 Colorectal Cancer: Fecal Imm unochemical Test (FIT) Annually [facility] 07/31/1996 Colorectal Cancer: High-sens itivity gFOBT Screening Annually [facility] 07/31/1996 Colorectal Cancer: Stool Col oguard Screening every 3 yrs 07/31/1996 Colorectal Cancer:CT Colonography Screening every 5 yr s 07/31/1996 Lipid Screening: Every 5 yrs for Women aged 45+ (or HM Modifier) ([facility]) 07/31/1997 Breast Cancer: Screening Symone lynch age 50-74 yrs (or HM Modifier)([facility]) 07/31/2001 Zoster/Shingles Vaccine Seri es Screening: Adults aged 18+ yrs (or HM Modifiers)([facility]) (1 of 2) 07/31/2001 Osteoporosis Screening to Pr event Fractures: Women aged 65 years+ ([facility]) 07/31/2016 Pneumococcal Vaccination Scr eening: Patients 65+ yrs of age ([facility]) (1 of 1 - PCV) 07/31/2016 Flu Vaccination: Ages 65+: Y early High Dose Recommended (or Modifier)([facility]) 11/18/2023 COVID-19 Vaccine Screening: Initial Series and Booster Status ([facility]) ( - 2023-25 season) 2023 RSV Vaccines (1 - 1-dose 75+ series) 07/31/2026 Medical Devices Not on file [place] [place] [address] MEDICARE Care Teams Measurement Superintendent Relationship Specialty Start Date End Date Pcp, No PCP - General Family Medicine 12/24/20
== END ==
LOC: HO.CARD 10:14
PROVIDERS: PCP Internal Medicine; Visit Provider Internal Medicine
DX: I48.0 Paroxysmal atrial fibrillation (principal)
CPT/HCPCS: 93246

== ENCOUNTER → 2024-06-13 10:23 | Outpatient (BNV) | payer MEDICARE, SELFPAY | PROVIDERS: PCP Internal Medicine; Visit Provider Internal Medicine Cardiovascular Disease | DX: I48.91 Unspecified atrial fibrillation (principal) | CPT/HCPCS: 93248 ==

== ENCOUNTER 2024-07-06 08:50 | Outpatient (REF) | payer MEDICARE, SELFPAY ==
--- OUTSIDE RECORDS SUMMARY | 2024-07-06 09:17 | XMS_ITS | Clinical Summary ---
Author Organization [employer] [facility] Address [address] [place] [address] Care Team Providers Care Insurance Adviser Name Role Phone Pcp, No Primary Care Provider [phone] Medications estradioL (ESTRACE) 0.01 % (0.1 mg/gram) [...] yrs or above (or HM Modifier)([facility]) 07/31/1969 Hepatitis C Virus Infection in Adolescents and Adults: Screening (or Modifier) ([facility]) 07/31/1969 SDOH Screening Reminder: Symone lynch for all adults ([facility]) 07/31/1969 Tobacco Smoking Cessation: i n Adults excluding Women: Behavioral and Pharmacotherapy Interventions ([facility]) 07/31/1969 DTaP/Tdap/Td Vaccines ([facility]) (1 - Tdap) 07/31/1970 Colorectal Cancer Screening 45 -75 Yrs (or HM Modifier ) 07/31/1996 Colorectal Cancer: FLEXIBLE SIGMOIDOSCOPY Screening every 5 yrs 07/31/1996 Colorectal Cancer: Fecal Imm unochemical Test (FIT) Annually [facility] 07/31/1996 Colorectal Cancer: High-sens itivity gFOBT Screening Annually [facility] 07/31/1996 Colorectal Cancer: Stool Col oguard Screening every 3 yrs 07/31/1996 Colorectal Cancer:CT Colonography Screening every 5 yr s 07/31/1996 Lipid Screening: Every 5 yrs for Women aged 45+ (or HM Modifier) ([facility]) 07/31/1997 Breast Cancer: Screening Symone lynch age 50-74 yrs (or HM Modifier)([facility]) 07/31/2001 Zoster/Shingles Vaccine Seri es Screening: Adults aged 18+ yrs (or HM Modifiers)([facility]) (1 of 2) 07/31/2001 Osteoporosis Screening to Pr event Fractures: Women aged 65 years+ ([facility]) 07/31/2016 Pneumococcal Vaccination Scr eening: Patients 65+ yrs of age ([facility]) (1 of 1 - PCV) 07/31/2016 Flu Vaccination: Ages 65+: Y early High Dose Recommended (or Modifier)([facility]) 11/18/2023 COVID-19 Vaccine Screening: Initial Series and Booster Status ([facility]) ( - 2023-25 season) 2023 RSV Vaccines (1 - 1-dose 75+ series) 07/31/2026 Medical Devices Not on file [place] [address] [address] [address] MEDICARE Care Teams Insurance Adviser Relationship Specialty Start Date End Date Pcp, No PCP - General Family Medicine 12/24/20
--- OUTSIDE RECORDS SUMMARY | 2024-07-06 09:17 | XMS_ITS | Clinical Summary ---
Author Organization [facility] Address [address] [address] Phone Care Team Providers Care Demand Manager Name Role Phone Michelle Álvarez MD Primary Care Provider [phone] Allergies No known active allergies Medications Medication [...] 02/02/2019, 02/22/2018, Additional history exists COVID-19 VACCINE (3 - 2023- season) 2023 07/16/2020, 06/25/2020 RSV [...] Medical Devices Not on file Care Teams Demand Manager Relationship Specialty Start Date End Date Michelle Álvarez MD [address] [place] [address] PCP - General Internal Medicine 03/18/21 Additional Source Comments The information contained in this document represents components of the legal health record. It is not the complete legal health record.[facility]
--- OUTSIDE RECORDS SUMMARY | 2024-07-06 09:17 | XMS_ITS | Clinical Summary ---
Author Organization [facility] Address [address] [place] [address] Care Team Providers Care Screwhead Stoner And Polisher Name Role Phone Michelle Álvarez Unavailable Guido Fitzgerald MD Unavailable [phone] Social History Tobacco Use Types Packs/Day Years [...] age to complete this topic Care Teams Screwhead Stoner And Polisher Relationship Specialty Start Date End Date Preeti Michelle 1960 [place] [address] PCP - Insurance Assigned PCP 03/22/23 Guido Fitzgerald MD [address] [place] [address] Neurology 09/18/23
[2024-07-06 10:10] LABS: MANUAL DIFF FLAG NO
[2024-07-06 10:22] LABS: Basophils Percent Auto 0.2 % (0-2); Eosinophils Absolute Auto 0.1 X10*3/uL (0.0-0.4); Eosinophils Percent Auto 2.3 % (0-4); Hematocrit 35.9 % (37.0-47.0); Hemoglobin 11.6 g/dl (12.0-16.0); Imm Gran Abs Auto 0.02 X10*3/uL (0.00-0.03); Imm Gran Pct Auto 0.4 % (0.0-0.4); Lymphocytes Absolute Auto 2.6 X10*3/uL (1.2-4.9); Lymphocytes Percent Auto 45.8 % (20-40); Mean Corpuscular HGB Conc 32.3 g/dl (31.0-35.0); Mean Corpuscular Hemoglobin 30.5 pg (27.0-33.0); Mean Corpuscular Volume 94.5 fL (80.0-98.0); Mean Platelet Volume 10.1 fL (9.4-12.3); Monocytes Absolute Auto 0.8 X10*3/uL (0.1-1.2); Monocytes Percent Auto 14.6 % (2-11); Neutrophils Absolute Auto 2.1 x10*3/uL (2.0-8.3); Neutrophils Percent Auto 36.7 % (45-73); Platelet Count 251 X10*3/uL (160-400); Red Cell Distribution Width 13.9 % (11.0-16.0); White Blood Count 5.7 X10*3/uL (4.8-10.8)
[2024-07-06 11:11] LABS: Alanine Aminotransferase 20 U/L (0-31); Albumin Level 3.9 g/dL (3.5-5.0); Alkaline Phosphatase 55 U/L (39-117); Anion Gap 9 (12-20); Aspartate Amino Transferase 23 U/L (5-31); Bilirubin Total 0.3 mg/dL (0.0-1.0); Blood Urea Nitrogen 23 mg/dL (9-16); Calcium 9.2 mg/dL (8.4-10.2); Carbon Dioxide 29 mmol/L (22-29); Chloride 104 mmol/L (96-108); Cholesterol 209 mg/dL (<200); Estimated Glomerular Filt Rate > 60; Glucose Fasting 79 mg/dL (60-99); HDL Cholesterol 68 mg/dL (>40); LDL Cholesterol Calculated 128 mg/dL (<100); Potassium 4.3 mmol/L (3.3-5.1); Sodium 138 mmol/L (135-145); Total Protein 7.4 g/dL (6.5-8.0); Triglycerides 69 mg/dL (<150)
[2024-07-06 11:46] LABS: Free T4 (Free Thyroxine) 1.02 ng/dL (0.71-1.85)
== END 2024-07-06 08:51 | disposition home or self-care (01) ==
LOC: HO.HMGCLDS 08:50
PROVIDERS: PCP Internal Medicine; Visit Provider Internal Medicine
DX: I10 Essential (primary) hypertension (principal); E27.1 Primary adrenocortical insufficiency; E03.9 Hypothyroidism, unspecified
CPT/HCPCS: 36415; 80053; 80061; 84439; 84443; 85025

== ENCOUNTER 2024-07-07 11:10 | Outpatient (REF) | payer MEDICARE, SELFPAY ==
[2024-07-07 13:40] LABS: Immature Retic Fraction 6.8 % (3.0-15.9); Retic HGB Equivalent 33.4 pg (30.0-35.0); Reticulocyte Percent 1.3 % (0.5-1.8); Reticulocytes Absolute 0.049 X10*6/uL (0.026-0.095)
[2024-07-07 14:18] LABS: Folate 10.4 ng/mL (> or = 4.0); Iron 72 mcg/dL (30-160); Percent Iron Saturation 29 % (15-50); Total Iron Binding Capacity 245 mcg/dL (228-428); Unsaturated Iron Binding 173 ug/dL; Vitamin B12 388 pg/mL (200-900)
[2024-07-11 17:29] LABS: Methylmalonic Acid 180 nmol/L (69-390)
[2024-07-12 12:18] LABS: IgA 341 mg/dL (70-320); IgG 1400 mg/dL (600-1540); IgM 154 mg/dL (50-300)
== END 2024-07-07 11:11 | disposition home or self-care (01) ==
LOC: HO.HMGCLDS 11:10
PROVIDERS: PCP Internal Medicine; Visit Provider Internal Medicine
DX: I10 Essential (primary) hypertension (principal); D64.9 Anemia, unspecified; I48.0 Paroxysmal atrial fibrillation; E27.1 Primary adrenocortical insufficiency; Z79.01 Long term (current) use of anticoagulants; Z79.899 Other long term (current) drug therapy
CPT/HCPCS: 36415; 82607; 82746; 82784; 83540; 83921; 85045; 86334; 96127; 99212

== ENCOUNTER 2024-07-07 11:10 | Outpatient (AMB) | payer MEDICARE, SELFPAY ==
[2024-07-07 11:13] VITALS: BP 126/70; PULSE 80; RESP 18; TEMP 36.7; O2SAT 96; BMI 21.1
--- NOTE | 2024-07-07 11:13 | A.OFFPC_ITS ---
Vital Signs 07/07/24 11:13 Height 5 ft 5 in Weight 127 lb BMI 21.1 BP 126/70 Blood Pressure Location Lt brachial Position Sitting Respiration 18 Pulse 80 Pulse Source Pulse Oximeter Temp 98.0 F Temp Source Oral Pulse Oximetry (%) 96 Oxygen Delivery Method Room Air Intake Visit Reasons: 1m f/u Intake Note: Pt is here today for 1 month follow up visit. Allergies No Known Allergies Allergy (Verified 07/07/24 11:16) Medication List - Last Reconciled 07/07/24 by Michelle Álvarez MD apixaban (Eliquis) 5 mg PO BID calcium carbonate 600 mg PO DAILY cholecalciferol (vitamin D3) 75 mcg PO DAILY fludrocortisone 0.1 mg PO DAILY hydrocortisone mg PO levothyroxine 88 mcg PO DAILY nifedipine ER 30 mg PO DAILY pantoprazole mg PO sertraline 50 mg PO DAILY Tobacco use date assessed: 07/07/24 Fall risk assessment: No Falls in past year Last assessed Fall Risk: 07/07/24 Dental Screening Dental Screen Date: 06/08/24 HPI 1m f/u HPI Details Patient presents for the follow-up on hypertension hypothyroidism Mora's disease chronic anxiety. She is feeling better started to walk 4 times a week. Patient had extended time negative Holter monitor and denies any recurrent chest pain shortness or breath palpitations. She has an appointment with environmental studies professor next week for Mora's disease and hypothyroidism [facility] Medical History Vaginal pessary present Human papilloma virus (HPV) DNA test negative Osteopenia Annual physical exam Microscopic hematuria Osteopenia Hypothyroidism Kathleen syndrome HTN (hypertension) Addisons disease Surgical History History of lung surgery History of esophagogastroduodenoscopy (EGD) H/O colonoscopy Family History Father No problems noted. Mother No problems noted. Social History Housing: House Alcohol intake: current Alcohol intake frequency: holidays/special occasions only Patient Tobacco Use Status: Never used Tobacco e-Cigarette/Vaping Use: Never Used service: No Current occupational status: retired Cognitive needs: No Hearing needs: No Vision needs: No Questionnaire PHQ-9 Over the last 2 weeks, how often have you been bothered by any of the following problems? 1. Little interest or pleasure in doing things: not at all 2. Feeling down, depressed, or hopeless: not at all 3. Trouble falling or staying asleep, or sleeping too much: not at all 4. Feeling tired or having little energy: not at all 5. Poor appetite or overeating: not at all 6. Feeling bad about yourself - or that you are a failure or have let yourself or your family down: not at all 7. Trouble concentrating on things, such as reading the newspaper or watching television: not at all 8. Moving or speaking so slowly that other people could have noticed. Or the opposite - being so fidgety or restless that you have been moving around a lot more than usual: not at all 9. Thoughts that you would be better off or of hurting yourself in some way: not at all Total score: 0 Depression Screening Interpretation: Negative Depression Screening Done: Yes 18678 - PHQ-9 Billing: Yes Source: Developed by Drs. Sammy Dumas, Cary Mccormack, Davidson Blake and colleagues, with an educational zhanna from [employer]. Thrive Questionnaire Date Thrive assessed: 07/07/24 I am a: Patient What is your living situation today?: I have a steady place to live Within the past 12 months, did the food you bought not last and you didn't have the money to get more?: Never true Within the past 12 months, did you worry whether your food would run out before you got money to buy more?: Never true Do you have trouble paying for medicines?: No Do you have trouble getting transportation to medical appointments?: No Do you have trouble paying your heating and electricity bill?: No Do you have trouble taking care of your child, family member or friend?: No Do you have trouble with day-to-day activities such as bathing, preparing meals, shopping, managing finances, etc.?: No Are you currently unemployed and looking for a job?: No Are you interested in more education?: No Please select the resources that you would like help with: None Currently or been in a relationship where the following occur: No concerns reported THRIVE Score: 0 SENIA-7 AMB Questionnaire SENIA-7 Date SENIA - 7 assessed: 07/07/24 Feeling nervous, anxious, or on edge: 1 = Several days Not being able to stop or control worryin = Not at all Worrying too much about different things: 1 = Several days Trouble relaxin = Several days Being so restless that it is hard to sit still: 0 = Not at all Becoming easily annoyed or irritable: 0 = Not at all Feeling afraid as if something awful might happen: 0 = Not at all Total SENIA-7 score (0-4 normal; 5-9 mild; 10-14 moderate; 15-21 severe): 3 Source: Developed by Drs. Sammy Dumas, Cary Mccormack, Davidson Blake and colleagues, with an educational zhanna from [employer]. SENIA-7 Assessment Billing SENIA-7 Assessment Tool: SENIA-7 Assessment 49279 Review of Systems Const All systems reviewed & are unremarkable except as noted in HPI and below Eyes Reports no additional complaints ENT Reports no additional complaints Card Reports no additional complaints Resp Reports no additional complaints GI Reports no additional complaints Reports no additional complaints Physical exam (Primary Care) Vital Signs: Last Vital Signs Temp 98.0 F 07/07/24 11:13 Pulse 80 07/07/24 11:13 Resp 18 07/07/24 11:13 BP 126/70 07/07/24 11:13 Pulse Ox 96 07/07/24 11:13 Oxygen Delivery Method Room Air 07/07/24 11:13 BMI result Body Mass Index 21.1 Tobacco/Smoking Status: Tobacco use Status Tobacco use date assessed 07/07/24 07/07/24 11:21 Patient Tobacco Use Status Never used Tobacco 07/07/24 11:14 e-Cigarette/Vaping Use Never Used 07/07/24 11:14 PHQ-9: PHQ-9 Score PHQ-9: Total score 0 07/07/24 11:21 Depression Screening Interpretation: Negative Thrive Assessment: Date of Thrive Assessment Date Thrive assessed 07/07/24 07/07/24 11:21 Currently or been in a relationship where the following occur: No concerns reported Const General: no acute distress HENMT Head: Yes normal to inspection Throat: Yes posterior oropharynx normal Neck Neck: Yes supple Resp Effort & Inspection: normal respiratory effort Auscultation: clear to auscultation bilaterally Cardio Rhythm: regular rhythm Heart sounds: S1 normal heart sound present and S2 normal heart sound present GI Inspection: Yes normal to inspection Palpation (GI): Soft to palpation Percussion: Yes normal to percussion Coding Level of Care Code Est Pt Level 4 (94068) Diagnoses Anemia D64.9 Paroxysmal A-fib I48.0 HTN (hypertension) I10 Addisons disease E27.1 Additional Codes SENIA-7 Assessment Billing - SENIA-7 Assessment Tool: SENIA-7 Assessment 54078 ([id number]) PHQ-9 - 33615 - PHQ-9 Billing: Yes ([id number]) Assessment & Plan Assessment & Plan (1) Anemia: Code(s): D64.9 - Anemia, unspecified Category: Medical Plan: For borderline anemia check iron studies B12 (2) Paroxysmal A-fib: Comment: While hospitalized in ICU in [facility] for Mora's crisis 05/2024, Holter negative, Echo in [facility] nl, [id number] VASc 2 Code(s): I48.0 - Paroxysmal atrial fibrillation Category: Medical Plan: Continue Eliquis (3) HTN (hypertension): Code(s): I10 - Essential (primary) hypertension Category: Medical Plan: Continue nifedipine (4) Addisons disease: Comment: follow-up with [facility]ocr[facility]ology, Steven's crisis in [facility] 05/2024 Code(s): E27.1 - Primary adrenocortical insufficiency Category: Medical Plan: Continue current medications follow-up with environmental studies professor Orders: Orders Reticulocyte Count Today D64.9 - Anemia, unspecified Comprehensive [place]. Panel Fast 3 Months I48.0 - Paroxysmal atrial fibrillation IRON PROFILE Today D64.9 - Anemia, unspecified Vitamin B12 and Folate Today D64.9 - Anemia, unspecified Methylmalonic Acid Today D64.9 - Anemia, unspecified Immunofixation Pnl, Serum Today D64.9 - Anemia, unspecified Complete Blood Count Auto Diff 3 Months I48.0 - Paroxysmal atrial fibrillation
--- OUTSIDE RECORDS SUMMARY | 2024-07-07 13:39 | XMS_ITS | Clinical Summary ---
Author Organization [facility] Address [address] [place] [address] Care Team Providers Care Tribal Delegate Name Role Phone Michelle Álvarez Unavailable Guido Fitzgerald MD Unavailable [phone] Social History Tobacco Use Types Packs/Day Years [...] age to complete this topic Care Teams Tribal Delegate Relationship Specialty Start Date End Date Preeti Michelle [address] [place] [address] PCP - Insurance Assigned PCP 03/22/23 Guido Fitzgerald MD [address] [place] [address] Neurology 09/18/23
--- OUTSIDE RECORDS SUMMARY | 2024-07-07 13:39 | XMS_ITS | Clinical Summary ---
Author Organization [facility] Address [address] [address] Phone Care Team Providers Care Trim Attacher Name Role Phone Michelle Álvarez MD Primary Care Provider [phone] Allergies No known active allergies Medications Medication [...] TSH LEVEL 1951 DEPRESSION SCREENING 1963 HEPATITIS C SCREENING 07/31/1969 MAMMOGRAM 1991 COLOGUARD [...] Medical Devices Not on file Care Teams Trim Attacher Relationship Specialty Start Date End Date Michelle Álvarez MD [address] [place] [address] PCP - General Internal Medicine 03/18/21 Additional Source Comments The information contained in this document represents components of the legal health record. It is not the complete legal health record.[facility]
== END 2024-07-07 12:14 | disposition home or self-care (01) ==
LOC: HO.HMCC 11:11
PROVIDERS: PCP Internal Medicine; Visit Provider Internal Medicine
DX: D64.9 Anemia, unspecified (principal); I48.0 Paroxysmal atrial fibrillation; I10 Essential (primary) hypertension; E27.1 Primary adrenocortical insufficiency

== ENCOUNTER 2024-07-31 12:08 | Outpatient (AMB) | payer MEDICARE, SELFPAY ==
[2024-07-31 12:33] VITALS: BP 124/70; PULSE 77; RESP 18; TEMP 36.6; O2SAT 99; BMI 22.0
--- NOTE | 2024-07-31 12:33 | MHC.PC.OV ---
Vital Signs 07/31/24 12:33 Height 5 ft 5 in Weight 132 lb BMI 22.0 BP 124/70 Blood Pressure Location Lt brachial Position Sitting Respiration 18 Pulse 77 Pulse Source Pulse Oximeter Temp 97.9 F Temp Source Oral Pulse Oximetry (%) 99 Oxygen Delivery Method Room Air Intake Visit Reasons: Leg swelling, ok per Dr Bay Intake Note: Pt is here today for a sick visit. Pt c/o R leg swelling and now its just the R ankle pain and swelling. Allergies No Known Allergies Allergy (Verified 07/31/24 12:36) Tobacco use date assessed: 07/31/24 Dental Screening Dental Screen Date: 06/08/24 HPI Leg swelling, ok per Dr Bay HPI Details Patient developed right ankle swelling 2 days ago. She denies any pain or injury. Patient elevated like yesterday and the swelling improved significantly. She has been taking Eliquis for history of episode of AFib. Patient denies chest pain shortness or breath PND orthopnea hypertension has been controlled on nifedipine [facility] Medical History Vaginal pessary present Human papilloma virus (HPV) DNA test negative Osteopenia Annual physical exam Microscopic hematuria Osteopenia Hypothyroidism Kathleen syndrome HTN (hypertension) Addisons disease Surgical History History of lung surgery History of esophagogastroduodenoscopy (EGD) H/O colonoscopy Family History Father No problems noted. Mother No problems noted. Social History Housing: House Alcohol intake: current Alcohol intake frequency: holidays/special occasions only Patient Tobacco Use Status: Never used Tobacco e-Cigarette/Vaping Use: Never Used service: No Current occupational status: retired Cognitive needs: No Hearing needs: No Vision needs: No Questionnaire Thrive Questionnaire Date Thrive assessed: 07/07/24 SENIA-7 AMB Questionnaire SENIA-7 Date SENIA - 7 assessed: 07/07/24 Source: Developed by Drs. Sammy Dumas, Cary Mccormack, Davidson Blake and colleagues, with an educational zhanna from [employer]. Review of Systems Const All systems reviewed & are unremarkable except as noted in HPI and below Eyes Reports no additional complaints ENT Reports no additional complaints Card Reports no additional complaints Resp Reports no additional complaints GI Reports no additional complaints Physical exam (Primary Care) Vital Signs: Last Vital Signs Temp 97.9 F 07/31/24 12:33 Pulse 77 07/31/24 12:33 Resp 18 07/31/24 12:33 BP 124/70 07/31/24 12:33 Pulse Ox 99 07/31/24 12:33 Oxygen Delivery Method Room Air 07/31/24 12:33 BMI result Body Mass Index 22.0 Tobacco/Smoking Status: Tobacco use Status Tobacco use date assessed 07/31/24 07/31/24 12:39 Patient Tobacco Use Status Never used Tobacco 07/31/24 12:33 e-Cigarette/Vaping Use Never Used 07/31/24 12:33 Thrive Assessment: Date of Thrive Assessment Date Thrive assessed 07/07/24 07/31/24 12:33 Const General: no acute distress HENMT Head: Yes normal to inspection Neck Neck: Yes supple Resp Effort & Inspection: normal respiratory effort Auscultation: clear to auscultation bilaterally Cardio Rhythm: regular rhythm Heart sounds: S1 normal heart sound present and S2 normal heart sound present Extrem Other: Trace pitting edema of the right ankle the slightly decreased range of motion no erythema or warmth. Immunizations pneumoc 20-ester conj-dip cr(PF) 0.5 mL IM syringe Performing Provider: Michelle Álvarez MD Performing Location: [facility] Administered by: KIERAN Salas on 07/31/24 12:51 Dose Route Admin Location Dispensed Lot Number Expiration Date [facility] Sales Engagement Manager 0.5 mL IM Left Deltoid 0.5 mL [id number] 10/16/25 9432-1261-45 WYETH/PFIZER VIS Given Date VIS Provided VIS Publication Date 07/31/24 Single Vaccine 21 Eligibility Eligibility Date Funding Source Not [facility] Eligible 07/31/24 Private Coding Level of Care Code Est Pt Level 4 (35883) Diagnoses Right ankle swelling M25.471 Paroxysmal A-fib I48.0 HTN (hypertension) I10 Addisons disease E27.1 Assessment & Plan Assessment & Plan (1) Right ankle swelling: Code(s): M25.471 - Effusion, right ankle Category: Medical Plan: Supportive care discussed with the patient (2) Paroxysmal A-fib: Comment: While hospitalized in ICU in [facility] for Crisp's crisis 05/2024, Holter negative, Echo in [facility] nl, [id number] VASc 2 Code(s): I48.0 - Paroxysmal atrial fibrillation Category: Medical Plan: Continue Eliquis (3) HTN (hypertension): Code(s): I10 - Essential (primary) hypertension Category: Medical Plan: Continue nifedipine (4) Addisons disease: Comment: follow-up with [facility] Endocrinology, Steven's crisis in [facility] 05/2024 Code(s): E27.1 - Primary adrenocortical insufficiency Category: Medical Plan: Continue current medications follow-up with material specialist Orders: Orders Pneumococcal 20 Immunization Today Z23 - Encounter for immunization
--- OUTSIDE RECORDS SUMMARY | 2024-07-31 14:09 | XMS_ITS | Clinical Summary ---
Author Organization [facility] Address [address] [place] [address] Care Team Providers Care Chemical Recovery Operator Name Role Phone Michelle Álvarez Unavailable Guido Fitzgerald MD Unavailable [phone] Social History Tobacco Use Types Packs/Day Years [...] Multitarget Stool DNA (Cologuard) 07/31/1996 Sigmoidoscopy 07/31/1996 Pneumococcal Vaccine (1 of 1 - PCV) 07/31/2001 Zoster Vaccine (1 of 2) 07/31/2001 Osteoporosis Screening 07/31/2016 COVID-19 Vaccine ( - 2023-2 5 season) 2023 Influenza Vaccine (Season Ended) 2024 Meningococcal Vaccines Aged Out No lo nger eligible based on patient's age to complete this topic Care Teams Chemical Recovery Operator Relationship Specialty Start Date End Date Preeti Michelle 1960 [place] [address] PCP - Insurance Assigned PCP 03/22/23 Guido Fitzgerald MD [address] [place] [address] Neurology 09/18/23
--- OUTSIDE RECORDS SUMMARY | 2024-07-31 14:09 | XMS_ITS | Clinical Summary ---
Author Organization [facility] Address [address] [address] Phone Care Team Providers Care Lead Medical Technologist Name Role Phone Michelle Álvarez MD Primary Care Provider [phone] Allergies No known active allergies Medications Medication [...] Medical Devices Not on file Care Teams Lead Medical Technologist Relationship Specialty Start Date End Date Michelle Álvarez MD [address] [place] [address] PCP - General Internal Medicine 03/18/21 Additional Source Comments The information contained in this document represents components of the legal health record. It is not the complete legal health record.[facility]
--- OUTSIDE RECORDS SUMMARY | 2024-07-31 14:09 | XMS_ITS | Encounter Summary ---
Author Organization [facility] Address [address] [place] [address] Care Team Providers Care Licensed Psychiatric Technician Name Role Phone Unavailable Primary Care Provider Unavailabl e Encounter Details Date Type Department Care Team (Late st Contact Info) Description 07/07/2024 Lab Requisition [facility] - Main Lab [address] [facility] [place] [address] Joaquina Payton DO [address] [place] [address] Urgency of urination Social History Tobacco Use Types Packs/Day Years Used Date Smoking Tobacco: Never Assessed Comments Unknown Sex and Gender Information Value Date Recorded Sex Assigned at Not on file Legal Sex Female 12:07 AM EST Gender Identity Not on file Sexual Orientation Not on file documented as of this encounter Plan of Treatment Not on file documented as of this encounter Procedures Procedure Name Priority Date/Time Associated Diagnosis Comments CULTURE URINE Routine 07/07/2024 12:00 AM EDT Urgency of urination documented in this encounter Results * Culture urine (07/07/2024 12:00 AM EDT) Culture, Urine No growth 07/08/2024 2:56 PM EDT [facility] Urine Urine specimen obtained by clean catch procedure / Unknown 07/07/2024 07/07/2024 6:20 PM EDT Joaquina Payton DO LAB MICROBIOLOGY - GENERAL ORDER SHEILA Final Result [facility] [address] [place] [address], documented in this encounter Visit Diagnoses Diagnosis Urgency of urination documented in this encounter
--- OUTSIDE RECORDS SUMMARY | 2024-07-31 14:10 | XMS_ITS | Clinical Summary ---
Author Organization [address] Address [address] [place] [phone] Phone Care Team Providers Care Glazier Structural Glass Name Role Phone Unavailable Primary Care Provider Unavailabl e Encounters Date Type Department Care Team Description 07/07/[address] [facility] - Main Lab [address] [facility] [place] [address] Joaquina Payton DO Urgency of urination from Last 3 Months Social History Tobacco Use Types Packs/Day Years Used Date Smoking Tobacco: Never Assessed Comments Unknown Sex and Gender Information Value Date Recorded Sex Assigned at Not on file Legal Sex Female 12:07 AM EST Gender Identity Not on file Sexual Orientation Not on file Plan of Treatment Health Maintenance Due Date Last Done Comments Breast Cancer Screening 1950 DTaP,Tdap,and Td Vaccines (1 - Tdap) 07/31/1970 Pneumococcal Vaccine: 50+ Ye ars (1 of 1 - PCV) 07/31/2001 Zoster Vaccines (1 of 2) 07/31/2001 Colorectal Cancer Screening: Colonoscopy 03/22/2022 Depression Screening 03/22/2022 Falls Risk Assessment 03/22/2022 Hepatitis C Screening 03/22/2022 Medicare Annual Wellness Visit 03/22/2022 Osteoporosis Screening (Bone Density Screening) 03/22/2022 Social Influencers of Health Screening 03/22/2022 COVID-19 Vaccine ( - 2023-2 5 season) 2023 Influenza Vaccine (Season Ended) 2024 RSV Immunization Adult Patie nts (1 - 1-dose 75+ series) 07/31/2026 HIB Vaccines Aged Out No longer eligi ble based on patient's age to complete this topic HPV Vaccines Aged Out No longer eligi ble based on patient's age to complete this topic Hepatitis A Vaccines Aged Out No long er eligible based on patient's age to complete this topic Hepatitis B Vaccines Aged Out No long er eligible based on patient's age to complete this topic IPV Vaccines Aged Out No longer eligi ble based on patient's age to complete this topic MMR Vaccines Aged Out No longer eligi ble based on patient's age to complete this topic Meningococcal ACWY Vaccine Aged Out N o longer eligible based on patient's age to complete this topic Meningococcal B Vaccine Aged Out No l onger eligible based on patient's age to complete this topic RSV Immunization Patients Un smith 20 months Aged Out No longer eligible b ased on patient's age to complete this topic Varicella Vaccines Aged Out No longer eligible based on patient's age to complete this topic Procedures Procedure Name Priority Date/Time Associated Diagnosis Comments CULTURE URINE Routine 07/07/2024 12:00 AM EDT Urgency of urination from Last 3 Months Results * Culture urine (07/07/2024 12:00 AM EDT) Culture, Urine No growth 07/08/2024 2:56 PM EDT [facility] Urine Urine specimen obtained by clean catch procedure / Unknown 07/07/2024 07/07/2024 6:20 PM EDT us Joaquina Payton DO LAB MICROBIOLOGY - GENERAL ORDER SHEILA Final Result [facility] [address] [place] [address], [place] [phone] from Last 3 Months Insurance MEDICARE [facility]
== END 2024-07-31 13:06 | disposition home or self-care (01) ==
LOC: HO.HMCC 12:08
PROVIDERS: PCP Internal Medicine; Visit Provider Internal Medicine
DX: M25.471 Effusion, right ankle (principal); I48.0 Paroxysmal atrial fibrillation; I10 Essential (primary) hypertension; E27.1 Primary adrenocortical insufficiency; Z23 Encounter for immunization

== ENCOUNTER → 2024-07-31 12:08 | Outpatient (BNVA) | payer MEDICARE, SELFPAY | PROVIDERS: PCP Internal Medicine; Visit Provider Internal Medicine | DX: I48.91 Unspecified atrial fibrillation (principal); M25.471 Effusion, right ankle; I10 Essential (primary) hypertension; I48.0 Paroxysmal atrial fibrillation; E27.1 Primary adrenocortical insufficiency; Z23 Encounter for immunization; Z79.01 Long term (current) use of anticoagulants | CPT/HCPCS: 90471; 90677; 99212 ==

== ENCOUNTER 2024-11-08 07:53 | Outpatient (REF) | payer MEDICARE, SELFPAY ==
--- OUTSIDE RECORDS SUMMARY | 2024-11-08 07:55 | XMS_ITS | Clinical Summary ---
Author Organization [facility] Address [address] [place] [id number] Care Team Providers Care Natural Remedy Consultant Name Role Phone Michelle Álvarez Unavailable Guido Fitzgerald MD Unavailable [phone] Social History Tobacco Use Types Packs/Day Years [...] - 2023-2 5 season) 2023 Influenza Vaccine (#1) 2024 Meningococcal B Vaccines Aged Out No longer eligible based on patient's age to complete this topic Meningococcal Vaccines Aged Out No lo nger eligible based on patient's age to complete this topic Care Teams Natural Remedy Consultant Relationship Specialty Start Date End Date Michelle Álvarez 1960 [place] [address] PCP - Insurance Assigned PCP 03/22/23 Guido Fitzgerald MD [address] [place] [phone] Neurology 09/18/23
--- OUTSIDE RECORDS SUMMARY | 2024-11-08 07:55 | XMS_ITS | Encounter Summary ---
Author Organization [facility] Address [address] [place] [address] Care Team Providers Care Automobile Brake Bonder Name Role Phone Michelle Álvarez MD Primary Care Provider [phone] Encounter Details Date Type Department Care Team (Late st Contact Info) Description 07/07/2024 Lab Requisition [facility] - Main Lab [address] [place] [address] Joaquina Payton DO [address] [place] [phone] Urgency of urination Social History Tobacco Use Types Packs/Day Years Used Date Smoking Tobacco: Never Assessed Comments Unknown Sex and Gender Information Value Date Recorded Sex Assigned at Not on file Legal Sex Female 12:07 AM EST Gender Identity Not on file Sexual Orientation Not on file documented as of this encounter Plan of Treatment Upcoming Encounters Date Type Department Care Team (Late Contact Info) Description 12/15/2024 2:10 PM EDT Office Visit Gastroenterology - [address] [facility] [address] [place] [phone] Jo-Ann He PA [address] [place] [address] documented as of this encounter Procedures Procedure Name Priority Date/Time Associated Diagnosis Comments CULTURE URINE Routine 07/07/2024 12:00 AM EDT Urgency of urination documented in this encounter Results * Culture urine (07/07/2024 12:00 AM EDT) Culture, Urine No growth 07/08/2024 2:56 PM EDT [facility] Urine Urine specimen obtained by clean catch procedure / Unknown 07/07/2024 07/07/2024 6:20 PM EDT us Joaquina Payton DO LAB MICROBIOLOGY - GENERAL ORDER SHEILA Final Result [facility] [address] [place] [address], documented in this encounter Visit Diagnoses Diagnosis Urgency of urination documented in this encounter Care Teams Automobile Brake Bonder Relationship Specialty Start Date End Date Michelle Álvarez MD [address] [place] [address] PCP - General Internal Medicine 09/21/24 documented as of this encounter
--- OUTSIDE RECORDS SUMMARY | 2024-11-08 07:55 | XMS_ITS | Clinical Summary ---
Author Organization [facility] Address [address] [address] Phone Care Team Providers Care Nursing Information Systems Coordinator Name Role Phone Michelle Álvarez MD Primary Care Provider [phone] Allergies No known active allergies Medications hydrocortisone (CORTEF) 5 MG tablet 1 Active levothyroxine (SYNTHROID, LEVOTHROID) 88 MCG tablet 1 Active fludrocortisone (FLORINEF) 0.1 mg tablet 1 Active NIFEdipine (PROCARDIA XL) 30 MG 24 hr tablet Take 30 mg by mouth daily. 2 Active pantoprazole (PROTONIX) 40 MG tablet Take 1 tablet by mouth 2 (two) times a day. 1 Active albuterol 90 mcg/actuation inhalerIndicatio ns:Cough,Wheezin g Inhale 2 puffs into the lungs every 4 (four) hours as needed for wheezing. 8 g 2 Active Additional Information Patient not taking.Reported on 04/03/2023 doxycycline monohydrate (MONODOX) 100 MG capsule Take 1 capsule (100 mg total) by mouth 2 (two) times a day. 14 capsule 3 Active levalbuterol (XOPENEX HFA) 45 mcg/actuation inhalerIndicatio ns:Cough Inhale 1-2 puffs into the lungs every 6 (six) hours as needed for wheezing. 15 g 4 Active doxycycline monohydrate (MONODOX) 100 MG capsule Take 1 capsule (100 mg total) by mouth 2 (two) times a day. 14 capsule Active Active Problems No known active problems Immunizations Immunization Administration Dates Next Due Influenza High-Dose Quadrivalent [...] with a working camera? Not on file Comments Unknown Sex and Gender Information Value Date Recorded Sex Assigned at Not on file Legal Sex Female 4:57 PM EST Gender Identity Not on file Sexual Orientation Not on file Last Filed Vital Signs Vital Sign Reading Time Taken Comments Blood Pressure 120/68 08/08/2023 11:58 AM EDT Pulse 100 08/08/2023 12:01 PM EDT 100 trending Temperature 36.8 C (98.3 F) 08/08/2023 11:58 AM EDT Respiratory Rate 23 08/08/2023 11:58 AM EDT [...] VACCINES (1 of 2) 07/31/2001 OSTEOPOROSIS SCREENING INITI AL (ONE-TIME) 07/31/2016 COVID-19 VACCINE (3 - 2023-2 5 season) 2023 07/16/2020, 06/25/2020 RSV VACCINE (1 - 1-dose 75+ series) 07/31/2026 Adult Td,Tdap Booster 09/09/2026 09/09/2016 SMOKING STATUS SCREENING (On ce After 26 Yrs) Completed 04/03/2023 HEPATITIS A VACCINES Aged Out No long er eligible based on patient's age to complete this topic HIB VACCINES Aged Out No longer eligi ble based on patient's age to complete this topic MENINGOCOCCAL VACCINES (ACWY) Aged Out No longer eligible based on patient's age to complete this topic MENINGOCOCCAL VACCINES (B) Aged Out N o longer eligible based on patient's age to complete this topic Medical Devices Not on file Insurance MEDICARE PART A & B [employer] SUPP[employer]MENT Care Teams Nursing Information Systems Coordinator Relationship Specialty Start Date End Date Michelle Álvarez MD [address] [facility] [place] [address] PCP - General Internal Medicine 03/18/21 Additional Source Comments The information contained in this document represents components of the legal health record. It is not the complete legal health record.[facility]
--- OUTSIDE RECORDS SUMMARY | 2024-11-08 07:55 | XMS_ITS | Clinical Summary ---
Author Organization [facility] Address [address] [place] [address] Care Team Providers Care Sql Server Bi Developer Name Role Phone Pcp, No Primary Care Provider [phone] Medications estradioL (ESTRACE) 0.01 % (0.1 mg/gram) [...] 83 12/24/2020 10:47 AM EDT Temperature 36.4 C (97.5 F) 12/24/2020 10:47 AM EDT Respiratory Rate - - Oxygen Saturation 97% [...] yrs or above (or HM Modifier)([facility]) 07/31/1969 Hepatitis C Virus Infection in Adolescents and Adults: Screening (or Modifier) ([facility]) 07/31/1969 SDOH Screening Reminder: Symone lynch for all adults ([facility]) 07/31/1969 Tobacco Smoking Cessation: i n Adults excluding Women: Behavioral and Pharmacotherapy Interventions ([facility]) 07/31/1969 DTaP/Tdap/Td Vaccines ([facility]) (1 - Tdap) 07/31/1970 Colorectal Cancer Screening 45 -75 Yrs (or HM Modifier ) 07/31/1996 Colorectal Cancer: FLEXIBLE SIGMOIDOSCOPY Screening every 5 yrs 07/31/1996 Colorectal Cancer: Fecal Imm unochemical Test (FIT) Annually [facility] 07/31/1996 Colorectal Cancer: High-sens itivity gFOBT Screening Annually [facility] 07/31/1996 Colorectal Cancer: Stool Col oguard Screening every 3 yrs 07/31/1996 Colorectal Cancer:CT Colonography Screening every 5 yr s 07/31/1996 Breast Cancer: Screening Symone lynch age 50-74 yrs (or HM Modifier)([facility]) 07/31/2001 Pneumococcal Vaccination Scr eening: Patients 50+ yrs of age ([facility]) (1 of 1 - PCV) 07/31/2001 Zoster/Shingles Vaccine Seri es Screening: Adults aged 18+ yrs (or HM Modifiers)([facility]) (1 of 2) 07/31/2001 Osteoporosis Screening to Pr event Fractures: Women aged 65 years+ ([facility]) 07/31/2016 COVID-19 Vaccine Screening: Initial Series and Booster Status ([facility]) ( - 2023- season) 2023 Flu Vaccination: Ages 65+: Y early High Dose Recommended (or Modifier)([facility]) 11/17/2024 RSV Vaccines (1 - 1-dose 75+ series) 07/31/2026 Medical Devices Not on file Insurance [employer] [place] MEDICARE Care Teams Sql Server Bi Developer Relationship Specialty Start Date End Date Pcp, Torie PCP - General Family Medicine 12/24/20
[2024-11-08 10:18] LABS: Hematocrit 35.5 % (37.0-47.0); Hemoglobin 11.8 g/dl (12.0-16.0); Imm Gran Abs Auto 0.00 X10*3/uL (0.00-0.03); Imm Gran Pct Auto 0.0 % (0.0-0.4); Lymphocytes Absolute Auto 2.6 X10*3/uL (1.2-4.9); MANUAL DIFF FLAG NO; Mean Corpuscular HGB Conc 33.2 g/dl (31.0-35.0); Mean Corpuscular Hemoglobin 30.5 pg (27.0-33.0); Mean Corpuscular Volume 91.7 fL (80.0-98.0); NRBC Abs Auto 0.000 X10*3/uL (0.0-0.012); NRBC Pct Auto 0.0 /100WBC (0.0-0.2); Platelet Count 209 X10*3/uL (160-400); Red Blood Count 3.87 X10*6/uL (4.20-5.50); White Blood Count 4.9 X10*3/uL (4.8-10.8)
[2024-11-08 11:07] LABS: Alanine Aminotransferase 12 U/L (0-31); Albumin Level 4.0 g/dL (3.5-5.0); Alkaline Phosphatase 51 U/L (39-117); Anion Gap 10 (12-20); Aspartate Amino Transferase 24 U/L (5-31); Blood Urea Nitrogen 27 mg/dL (9-16); Calcium 9.0 mg/dL (8.4-10.2); Carbon Dioxide 28 mmol/L (22-29); Chloride 106 mmol/L (96-108); Cholesterol 211 mg/dL (<200); Estimated Glomerular Filt Rate > 60; HDL Cholesterol 63 mg/dL (>40); Potassium 3.9 mmol/L (3.3-5.1); Sodium 140 mmol/L (135-145); Total Protein 7.0 g/dL (6.5-8.0); Triglycerides 79 mg/dL (<150)
[2024-11-24 09:33] LABS: Cortisol, Free 0.04 mcg/dL
== END 2024-11-08 07:54 | disposition home or self-care (01) ==
LOC: HO.HMGCLDS 07:53
PROVIDERS: PCP Internal Medicine; Visit Provider Internal Medicine
DX: E27.1 Primary adrenocortical insufficiency (principal); I48.0 Paroxysmal atrial fibrillation; I10 Essential (primary) hypertension; E03.9 Hypothyroidism, unspecified
CPT/HCPCS: 36415; 80053; 80061; 82530; 84443; 85025

== ENCOUNTER 2024-11-13 09:48 | Outpatient (AMB) | payer MEDICARE, SELFPAY ==
[2024-11-13 09:58] VITALS: BP 122/70; PULSE 86; RESP 18; TEMP 36.6; O2SAT 97; BMI 23.0
--- NOTE | 2024-11-13 09:58 | A.OFFVIS_ITS ---
Intake Vital Signs 11/13/24 09:58 Height 5 ft 5 in Weight 138 lb BMI 23.0 BP 122/70 Blood Pressure Location Lt brachial Position Sitting Respiration 18 Pulse 86 Pulse Source Pulse Oximeter Temp 97.9 F Temp Source Oral Pulse Oximetry (%) 97 Oxygen Delivery Method Room Air Intake Visit Reasons: SWV G0439 Allergies No Known Allergies Allergy (Verified 11/13/24 10:00) Medication List - Last Reconciled 11/13/24 by Michelle Álvarez MD apixaban (Eliquis) 5 mg PO BID calcium carbonate 600 mg PO DAILY cholecalciferol (vitamin D3) 75 mcg PO DAILY fludrocortisone 0.1 mg PO DAILY hydrocortisone mg PO levothyroxine 88 mcg PO DAILY nifedipine ER 30 mg PO DAILY pantoprazole mg PO sertraline 50 mg PO DAILY HPI SWV G0439 HPI Details Patient presents for physical. She is going to [facility] for Thanksgiving with her family. Initiated the conversation about Advanced Directives. Advanced Directives help? patients prepare for current and future decisions about their medical treatment? and place of care. Discussed with patient that it is a process where a patients? current condition and prognosis are reviewed, their wishes for information? regarding their illness are elicited, and likely medical dilemmas are presented? and options discussed. The form can be amended as needed, reviewed yearly and? make changes as needed IPPE/AWV ? year old presents? for her ? Annual? Wellness Visit, initial visit.? Medical / Social History Reviewed? Past Medical History ?Yes? . ? [place]? of Care / Care Team list updated ?Yes . ? Surgical/Hospitalization? History ?Yes . ? Current Medications? (including OTC and supplements) ?Yes . ? Family History ?Yes? . ? Tobacco? Control form ?Yes . ? AUDIT-C (Alcohol use) form? ?Yes . ? Illicit drug use in Social? History ?Yes . ? Current diagnosis of? depression? ?No ? Appropriate PHQ2/PHQ9? completed ?Yes . ? Data entered by ?Medical? Photographer Still and reviewed by provider ? Fall Risk ? Fall? History? Have you had any falls with? injury in the past year? ?No . ? Have you had two or more? falls in the past year? ?No . ? Fall Risk Assessment: ?No? falls in the past year . ? HRA filled out by? the patient, reviewed by Provider and scanned. ? IPPE/AWV ? Balance? Romberg? ?Yes . ? Tandem? walk ?Yes . ? Walk and? Turn ?Yes . ? Rise from? sit to stand ?Yes . ?Vision? Corrective? lens ?Yes ? Vision? screen ? Up-to-date, has an appointment [] for vision? screening and glaucoma screening ?Hearing? Whisper? test ?pass .? Initiated the conversation about Advanced Directives. Advanced Directives help? patients prepare for current and future decisions about their medical treatment? and place of care. Discussed with patient that it is a process where a patients? current condition and prognosis are reviewed, their wishes for information? regarding their illness are elicited, and likely medical dilemmas are presented? and options discussed. The form can be amended as needed, reviewed yearly and? make changes as needed Written? Plan?Completed. See Patient? Documents. [facility] Medical History (Updated 11/13/24 @ 10:55 by Michelle Álvarez MD) Anemia Bacteriuria Sleep apnea Vaginal pessary present Human papilloma virus (HPV) DNA test negative Osteopenia Annual physical exam Microscopic hematuria Hypothyroidism Kathleen syndrome HTN (hypertension) Addisons disease Surgical History History of lung surgery History of esophagogastroduodenoscopy (EGD) H/O colonoscopy Family History Father No problems noted. Mother No problems noted. Social History Housing: House Alcohol intake: current Alcohol intake frequency: holidays/special occasions only Patient Tobacco Use Status: Never used Tobacco e-Cigarette/Vaping Use: Never Used service: No Current occupational status: retired Cognitive needs: No Hearing needs: No Vision needs: No Questionnaire Medicare Wellness Checkup [age] What gender do you identify with?: female During the past 4 weeks, how much have you been bothered by emotional problems such as feeling anxious, depressed, irritable, sad or downhearted, and blue?: not at all During the past 4 weeks, has your physical & emotional health limited your social activities with family, friends, neighbors, or groups?: not at all During the past 4 weeks, how much bodily pain have you generally had?: no pain During the past 4 weeks, was someone available to help you if you needed & wanted help?: yes, as much as I wanted During the past 4 weeks, what was the hardest physical activity you could do for at least 2 minutes?: heavy Can you get to places out of walking distance without help? (For eg., can you travel alone on buses, taxis or drive your car?): Yes Can you go shopping for groceries or clothes without someone's help?: Yes Can you prepare your own meals?: Yes Can you do your housework without help?: Yes Because of any health problems, do you need the help of another person with your personal care needs such as eating, bathing, dressing or getting around the house?: No Can you handle your own money without help?: Yes During the past 4 weeks, how would you rate your health in general?: excellent During the past 4 weeks how have things been going for you?: very well; could hardly better Are you having difficulties driving your car?: no Do you always fasten your seat belt when you are in a car?: yes, usually During past 4 weeks, have you been bothered by the following: never: Falling or dizzy when standing up, Sexual problems?, Trouble eating well?, Teeth or denture problems?, Problems using the telephone? and Tiredness or fatigue? Have you fallen 2 or more times in the past year?: No Are you afraid of falling?: No Are you a smoker?: no During the past 4 weeks, how many drinks of wine, beer, or other alcoholic beverages did you have?: 1 drink or less per week Do you exercise for about 20 minutes 3 or more times a week?: yes, most of the time Have you been given information to help with the following?: yes: Hazards in your house that might hurt you? and yes: Keeping track of your medications? How often do you have trouble taking medicines the way you have been told to take them?: I always take medicine as prescribed How confident are you that you can control & manage most of your health problems?: very confident What is your race?: White Mini Mental State Exam (MMSE) Orientation What is the (year) (season) (date) (day) (month)?: year, season, date, day and month Where are we (state) (county) (town or city) (hospital) (floor)?: state, county, town or city, hospital/clinic and floor Registration Name of 3 unrelated objects clearly and slowly, then ask patient to repeat all 3 of them. (1st repeat determines score. Make sure they can repeat all three): object 1, object 2 and object 3 Attention & Calculation (CHOOSE ONE) Spell WORLD backwards (DLROW): 5 letters Recall Ask patient to repeat the 3 items from question #3.: object 1, object 2 and object 3 Language Show patient a wristwatch & ask what it is. Repeat for pencil.: watch and pencil Ask the patient to repeat the phrase 'No ifs, ands, or buts' after you.: correct Ask the patient to 'take a piece of paper with their right hand' 'fold paper in half' 'place paper on floor': take paper in right hand, fold paper in half and place paper on floor Print the sentence 'CLOSE YOUR EYES' on a piece. If patient actually closes eyes then score.: followed written direction Give patient a blank piece of paper & ask to write a sentence. Score if it contains a noun & verb.: sentence contains subject and verb Score Score: 29 PHQ-9 Over the last 2 weeks, how often have you been bothered by any of the following problems? 1. Little interest or pleasure in doing things: not at all 2. Feeling down, depressed, or hopeless: not at all 3. Trouble falling or staying asleep, or sleeping too much: not at all 4. Feeling tired or having little energy: not at all 5. Poor appetite or overeating: not at all 6. Feeling bad about yourself - or that you are a failure or have let yourself or your family down: not at all 7. Trouble concentrating on things, such as reading the newspaper or watching television: not at all 8. Moving or speaking so slowly that other people could have noticed. Or the opposite - being so fidgety or restless that you have been moving around a lot more than usual: not at all 9. Thoughts that you would be better off or of hurting yourself in some way: not at all Total score: 0 Depression Screening Interpretation: Negative Depression Screening Done: Yes 34442 - PHQ-9 Billing: Yes Source: Developed by Drs. Sammy Dumas, Cary Mccormack, Davidson Blake and colleagues, with an educational zhanna from [employer]. Review of Systems Const All systems reviewed & are unremarkable except as noted in HPI and below Reports no additional complaints Eyes Reports no additional complaints ENT Reports no additional complaints Card Reports no additional complaints Resp Reports no additional complaints GI Reports no additional complaints Reports no additional complaints Musc Reports no additional complaints Physical Exam Vital Signs: Last Vital Signs Temp 97.9 F 11/13/24 09:58 Pulse 86 11/13/24 09:58 Resp 18 11/13/24 09:58 BP 122/70 11/13/24 09:58 Pulse Ox 97 11/13/24 09:58 Oxygen Delivery Method Room Air 11/13/24 09:58 BMI result Body Mass Index 23.0 Const General: no acute distress HEENT Head: Yes normal to inspection Ears: TM's normal bilaterally Eyes General: appearance normal, both eyes and all related structures Neck Neck: Yes no lymphadenopathy and Yes supple Resp Effort & Inspection: normal respiratory effort Auscultation: clear to auscultation bilaterally Cardio Rhythm: regular rhythm Heart sounds: S1 normal heart sound present and S2 normal heart sound present GI Inspection: Yes normal to inspection Palpation (GI): Soft to palpation Percussion: Yes normal to percussion Auscultation: normal bowel sounds Extrem General: Yes no clubbing, cyanosis or edema Assessment & Plan Assessment & Plan (1) Sleep apnea: Comment: The home sleep study moderatly severe FELIPE. The total AHI was 24/hr and oxygen shukri was 89% 2022, pt did not tolerated different masks, referred to Dr. Pack [facility] 10/2024 Code(s): G47.30 - Sleep apnea, unspecified Plan: Patient will be referred to Dr. Pack at [facility] to discuss the treatment for sleep apnea per her request (2) Paroxysmal A-fib: Comment: While hospitalized in ICU in [facility] for [place]'s crisis 05/2024, Holter negative 06/2024, Echo in [facility] nl, [id number]- VASc 2, pt declined taking Eliquis, stopped 10/2024 Code(s): I48.0 - Paroxysmal atrial fibrillation Plan: Patient will stop Eliquis (3) HTN (hypertension): Code(s): I10 - Essential (primary) hypertension Plan: Continue nifedipine (4) Osteopenia: Comment: DEXA 09/2020 [facility], f/u Tonja Kay at [facility], borderline osteoporosis, Code(s): M85.80 - Other specified disorders of bone density and structure, unspecified site Plan: Continue vitamin-D weight-bearing exercises follow-up with endocrinology at [facility] (5) Annual physical exam: Code(s): Z00.00 - Encounter for general adult medical examination without abnormal findings Plan: Well-balanced diet regular physical activity discussed with the patient she is up-to-date with the mammogram. She will have a colonoscopy with Dr. Oliveira. Patient will follow-up in 6 months with a fasting labs before (6) Addisons disease: Comment: follow-up with [facility] Endocrinology, [place]'s crisis in [facility] 05/2024 Code(s): E27.1 - Primary adrenocortical insufficiency Plan: Follow-up with endocrinology Orders: Orders Lipid Panel 6 Months E78.5 - Hyperlipidemia, unspecified, I10 - Essential (primary) hypertension, Z00.00 - Encounter for general adult medical examination without abnormal findings Comprehensive [place]. Panel Fast 6 Months E78.5 - Hyperlipidemia, unspecified, I10 - Essential (primary) hypertension, Z00.00 - Encounter for general adult medical examination without abnormal findings Complete Blood Count Auto Diff 6 Months E78.5 - Hyperlipidemia, unspecified, I10 - Essential (primary) hypertension, Z00.00 - Encounter for general adult medical examination without abnormal findings Referrals Pulmonology Referral G47.30 - Sleep apnea, unspecified Medications: Discontinued apixaban (Eliquis) Discontinued Reason: Duplicate 5 mg PO BID 180 tabs 3RF Quality Reporting (2019) Depression/Bipolar (159/160/161/177) PHQ-9: Total score: 0 Coding Level of Care Code Medicare Subsequent (G0439) Diagnoses Sleep apnea G47.30 Paroxysmal A-fib I48.0 HTN (hypertension) I10 Osteopenia M85.80 Annual physical exam Z00.00 Addisons disease E27.1 CPT Codes Advance Care Planning - Advance Care Planning discussion: On file, no changes ([id number]) Advance Care Planning - Time spent: 1-15 minutes, on File ([id number]) Additional Codes PHQ-9 - 94360 - PHQ-9 Billing: Yes ([id number]) Advance Care Planning Advance Care Planning discussion: On file, no changes Forms completed: Health Care Proxy Time spent: 1-15 minutes, on File Did not discuss due to Cultural/Spiritual beliefs: Yes
--- OUTSIDE RECORDS SUMMARY | 2024-11-13 10:47 | XMS_ITS | Clinical Summary ---
Author Organization [facility] Address [address] [address] Phone Care Team Providers Care Grocery Cashier Name Role Phone Michelle Álvarez MD Primary Care Provider [phone] Allergies No known active allergies Medications hydrocortisone [...] file Insurance MEDICARE PART A & B [employer] MEDEX SUPPLEMENT Care Teams Grocery Cashier Relationship Specialty Start Date End Date Michelle Álvarez MD 1960 [facility] [place] [address] PCP - General Internal Medicine 03/18/21 Additional Source Comments The information contained in this document represents components of the legal health record. It is not the complete legal health record.[facility]
--- OUTSIDE RECORDS SUMMARY | 2024-11-13 10:48 | XMS_ITS | Clinical Summary ---
Author Organization [facility] Address [address] [place] [id number] Care Team Providers Care Automotive Glass Installer Name Role Phone Michelle Álvarez Unavailable Guido Fitzgerald MD Unavailable [phone] Social History Tobacco Use Types Packs/Day Years [...] age to complete this topic Care Teams Automotive Glass Installer Relationship Specialty Start Date End Date Michelle Álvarez 1960 [place] [address] PCP - Insurance Assigned PCP 03/22/23 Guido Fitzgerald MD [address] [place] [id number] Neurology 09/18/23
--- OUTSIDE RECORDS SUMMARY | 2024-11-13 10:48 | XMS_ITS | Clinical Summary ---
Author Organization [facility] Address [address] [place] [address] Care Team Providers Care Chemical Research Worker Name Role Phone Pcp, No Primary Care Provider [phone] Medications estradioL (ESTRACE) 0.01 % (0.1 mg/gram) [...] Adults 18 yrs or above (or HM Modifier)([facility]) 07/31/1969 Hepatitis C Virus Infection in Adolescents and Adults: Screening (or Modifier) ([facility]) 07/31/1969 SDOH Screening Reminder: Symone lynch for all adults ([facility]) 07/31/1969 Tobacco Smoking Cessation: i n Adults excluding Women: Behavioral and Pharmacotherapy Interventions ([facility]) 07/31/1969 DTaP/Tdap/Td Vaccines ([facility]) (1 - Tdap) 07/31/1970 Colorectal Cancer Screening 45 -75 Yrs (or HM Modifier ) 07/31/1996 Colorectal Cancer: FLEXIBLE SIGMOIDOSCOPY Screening every 5 yrs 07/31/1996 Colorectal Cancer: Fecal Imm unochemical Test (FIT) Annually [facility] 07/31/1996 Colorectal Cancer: High-sens itivity gFOBT Screening Annually [facility] 07/31/1996 Colorectal Cancer: Stool Col oguard Screening every 3 yrs 07/31/1996 Colorectal Cancer:CT Colonography Screening every 5 yr s 07/31/1996 Breast Cancer: Screening Symone lynch age 50-74 yrs (or HM Modifier)([facility]) 07/31/2001 Pneumococcal Vaccination Scr eening: Patients 50+ yrs of age ([facility]) (1 of 1 - PCV) 07/31/2001 Zoster/Shingles Vaccine Seri es Screening: Adults aged 18+ yrs (or HM Modifiers)([facility]) (1 of 2) 07/31/2001 Osteoporosis Screening to Pr event Fractures: Women aged 65 years+ ([facility]) 07/31/2016 COVID-19 Vaccine Screening: Initial Series and Booster Status ([facility]) ( - 2023- season) 2023 Flu Vaccination: Ages 65+: Y early High Dose Recommended (or Modifier)([facility]) 11/17/2024 RSV Vaccines (1 - 1-dose 75+ series) 07/31/2026 Medical Devices Not on file Insurance [employer] MEDICARE Care Teams Chemical Research Worker Relationship Specialty Start Date End Date Pcp, Torie PCP - General Family Medicine 12/24/20
--- OUTSIDE RECORDS SUMMARY | 2024-11-13 10:48 | XMS_ITS | Encounter Summary ---
Author Organization [facility] Address [address] [place] [address] Care Team Providers Care Manager Procurement Name Role Phone Michelle Álvarez MD Primary Care Provider [phone] Encounter Details Date Type Department Care Team (Late st Contact Info) Description 07/07/2024 Lab Requisition [facility] - Main Lab [address] [place] [address] Joaquina Payton DO [address] [place] [id number] Urgency of urination Social History Tobacco Use Types Packs/Day Years Used Date Smoking Tobacco: Never Assessed Comments Unknown Sex and Gender Information Value Date Recorded Sex Assigned at Not on file Legal Sex Female 12:07 AM EST Gender Identity Not on file Sexual Orientation Not on file documented as of this encounter Plan of Treatment Upcoming Encounters Date Type Department Care Team (Late st Contact Info) Description 12/15/2024 2:10 PM EDT Office Visit Gastroenterology - [address] [place] [phone] Jo-Ann He PA [address] [place] [address] documented as of this encounter Procedures Procedure Name Priority Date/Time Associated Diagnosis Comments CULTURE URINE Routine 07/07/2024 12:00 AM EDT Urgency of urination documented in this encounter Results * Culture urine (07/07/2024 12:00 AM EDT) Culture, Urine No growth 07/08/2024 2:56 PM EDT [facility] Urine Urine specimen obtained by clean catch procedure / Unknown 07/07/2024 07/07/2024 6:20 PM EDT us Joaquina Payton DO LAB MICROBIOLOGY - GENERAL ORDER SHEILA Final Result [facility] [address] [place] [address], documented in this encounter Visit Diagnoses Diagnosis Urgency of urination documented in this encounter Care Teams Manager Procurement Relationship Specialty Start Date End Date Michelle Álvarez MD [address] [place] [address] PCP - General Internal Medicine 09/21/24 documented as of this encounter
== END 2024-11-13 10:48 | disposition home or self-care (01) ==
LOC: HO.HMCC 09:49
PROVIDERS: PCP Internal Medicine; Visit Provider Internal Medicine
DX: Z00.00 Encounter for general adult medical examination without abnormal findings (principal); I48.0 Paroxysmal atrial fibrillation; E27.1 Primary adrenocortical insufficiency; G47.30 Sleep apnea, unspecified; I10 Essential (primary) hypertension; M85.80 Other specified disorders of bone density and structure, unspecified site

== ENCOUNTER → 2024-11-13 09:48 | Outpatient (BNVA) | payer MEDICARE, SELFPAY | PROVIDERS: PCP Internal Medicine; Visit Provider Internal Medicine | DX: Z00.00 Encounter for general adult medical examination without abnormal findings (principal); E27.1 Primary adrenocortical insufficiency; M85.80 Other specified disorders of bone density and structure, unspecified site; I10 Essential (primary) hypertension; I48.0 Paroxysmal atrial fibrillation; G47.30 Sleep apnea, unspecified | CPT/HCPCS: 96127 ==

== ENCOUNTER 2025-01-10 09:22 | Outpatient (AMB) | payer MEDICARE, SELFPAY ==
[2025-01-10 09:26] VITALS: BP 120/70; PULSE 65; O2SAT 98; BMI 23.7
--- NOTE | 2025-01-10 09:26 | MHC.OFFVIS ---
Vital Signs 01/10/25 09:26 Height 5 ft 5 in Weight 142 lb 6 oz BMI 23.7 BP 120/70 Blood Pressure Location Rt brachial Position Sitting Pulse 65 Pulse Source Pulse Oximeter Pulse Oximetry (%) 98 Oxygen Delivery Method Room Air Intake Visit Reasons: Sleep apnea Allergies No Known Allergies Allergy (Verified 01/10/25 09:29) HPI HPI Sleep apnea: Details: Ratna is a pleasant 74 year old female, never smoker, with underlying FELIPE, HTN, Anemia, Stokes's disease and Anxiety. She was referred by PCP for pulmonary evaluation for management of FELIPE. She was previously under the care of [facility] Sleep Medicine, prior home sleep study 2022 revealed moderate FELIPE AHI 24, with no significant nocturnal hypoxemia, average oxygen saturation 95%, lowest 89%. She was started on CPAP therapy in APAP mode with pressures 6-16 cmH2O but reported difficulties with compliance due to mask issues. Today she presents to visit CPAP therapy as she feels her FELIPE symptoms are more noticeable with paroxysmal nocturnal dyspnea, loud snoring and nonrestorative sleep. At this time denies any respiratory symptoms or prior h/o asthma. [facility] Medical History (Updated 01/10/25 @ 09:47 by Rosa Hatch NP) Anemia Bacteriuria Sleep apnea Vaginal pessary present Human papilloma virus (HPV) DNA test negative Osteopenia Annual physical exam Microscopic hematuria Hypothyroidism Kathleen syndrome HTN (hypertension) Addisons disease Surgical History History of lung surgery History of esophagogastroduodenoscopy (EGD) H/O colonoscopy Family History Father No problems noted. Mother No problems noted. Social History Housing: House Alcohol intake: current Alcohol intake frequency: holidays/special occasions only Patient Tobacco Use Status: Never used Tobacco e-Cigarette/Vaping Use: Never Used service: No Current occupational status: retired Cognitive needs: No Hearing needs: No Vision needs: No Review of Systems Const Denies chills, Denies excessive sweating, Denies fever(s), Denies headache(s) and Denies night sweats Eyes Denies dry eyes, Denies irritation and Denies itchy eyes ENT Reports Normal hearing present, Denies headache(s), Denies nasal congestion, Denies nasal discharge, Denies post nasal drip and Denies sore throat Card Denies chest pain, Denies chest pain at rest, Denies chest pain with activity, Denies claudication, Denies leg edema, Denies dyspnea, Denies dyspnea on exertion, Denies orthopnea and Denies paroxysmal nocturnal dyspnea Resp Denies chest congestion, Denies cough, Denies excessive phlegm production, Denies pain on inspiration, Denies pain with cough, Denies dyspnea, Denies dyspnea on exertion, Denies stridor and Denies wheezing Musc Denies myalgias Neuro Reports Normal hearing present and Denies headache(s) Endo Denies excessive sweating Efren/Lymph Denies lymphadenopathy Aller/Immun Denies itchy eyes, Denies seasonal rhinorrhea and Denies wheezing Physical Exam Vital Signs: Last Vital Signs Pulse 65 01/10/25 09:26 BP 120/70 01/10/25 09:26 Pulse Ox 98 01/10/25 09:26 Oxygen Delivery Method Room Air 01/10/25 09:26 BMI result Body Mass Index 23.7 Const General: cooperative, healthy appearing, comfortable, no acute distress, well developed and alert Orientation/consciousness: patient oriented x3 Limitations: no limitations HEENT Head: Yes normal to inspection, Yes normocephalic and Yes atraumatic Ears: hearing grossly normal bilaterally and external ears normal Eyes General: appearance normal, both eyes and all related structures Eyelids: Yes eyelids normal Sclerae: sclerae normal EOM: EOMs intact bilaterally Neck Neck: Yes normal visual inspection and Yes no lymphadenopathy Lymphatic: no lymphadenopathy noted Chest Chest palpation & inspection: normal inspection of the chest Resp Effort & Inspection: normal respiratory effort, able to speak in complete sentences, no audible wheezes, no cough, no stridor, not tachypneic, no tripod positioning and no use of accessory muscles Auscultation: clear to auscultation bilaterally Cardio Jugular venous distension: no JVD Rate: regular rate Rhythm: regular rhythm Skin Other: warm, dry General skin exam: no rashes or lesions noted Neuro General: patient oriented x3 Cranial nerves: Yes Normal hearing present Cognition (Neuro): normal cognition Gait exam (Neuro): Normal gait present Extrem General: Yes normal to inspection, Yes capillary refill normal, Yes no clubbing, cyanosis or edema and Yes no pedal edema Psych Appearance: grossly normal and well kempt Speech and movement: Normal speech and movement present and Clear speech present Affect: normal affect Attitude: cooperative Thought process: Normal thought process present Thought content: Normal thought content present Insight: Good insight present (Psych) Judgement: Good judgement present (Psych) Assessment & Plan Assessment & Plan (1) Non-restorative sleep: Code(s): G47.8 - Other sleep disorders Category: Medical (2) Paroxysmal nocturnal dyspnea: Code(s): R06.00 - Dyspnea, unspecified Category: Medical Plan Ratna presents with prior h/o moderate FELIPE previously unable to tolerate CPAP therapy however has had increased symptoms of nonrestorative sleep, PND and loud snoring. Will send for home sleep study to reestablish diagnosis and if patient continues with FELIPE will initiate CPAP therapy. She is requesting to trial nasal masks as she felt claustrophobic with the full face mask which significantly affected her compliance. She also is requesting a different DME company other than [facility] if she continues to need CPAP therapy. All questions were answered and patient is in agreement of plan. Will follow up to review results of home sleep study or sooner if needed. Orders: Orders RT home sleep study Today G47.8 - Other sleep disorders, R06.00 - Dyspnea, unspecified Coding Level of Care Code New Pt Level 3 (94737) Diagnoses Non-restorative sleep G47.8 Paroxysmal nocturnal dyspnea R06.00
--- OUTSIDE RECORDS SUMMARY | 2025-01-10 11:05 | XMS_ITS | Clinical Summary ---
Author Organization [employer] [facility] Address [address] [place] [address] Care Team Providers Care Human Resources Operations Manager Name Role Phone Pcp, No Primary Care Provider [phone] Medications estradioL (ESTRACE) 0.01 % (0.1 mg/gram) [...] Adults 18 yrs or above (or HM Modifier)([facility]) 07/31/1969 Hepatitis C Virus Infection in Adolescents and Adults: Screening (or Modifier) ([facility]) 07/31/1969 SDOH Screening Reminder: Symone lynch for all adults ([facility]) 07/31/1969 Tobacco Smoking Cessation: i n Adults excluding Women: Behavioral and Pharmacotherapy Interventions ([facility]) 07/31/1969 DTaP/Tdap/Td Vaccines ([facility]) (1 - Tdap) 07/31/1970 Colorectal Cancer Screening 45 -75 Yrs (or HM Modifier ) 07/31/1996 Colorectal Cancer: FLEXIBLE SIGMOIDOSCOPY Screening every 5 yrs 07/31/1996 Colorectal Cancer: Fecal Imm unochemical Test (FIT) Annually [facility] 07/31/1996 Colorectal Cancer: High-sens itivity gFOBT Screening Annually [facility] 07/31/1996 Colorectal Cancer: Stool Col oguard Screening every 3 yrs 07/31/1996 Colorectal Cancer:CT Colonography Screening every 5 yr s 07/31/1996 Breast Cancer: Screening Symone lynch age 50-74 yrs (or HM Modifier)([facility]) 07/31/2001 Pneumococcal Vaccination Scr eening: Patients 50+ yrs of age ([facility]) (1 of 1 - PCV) 07/31/2001 Zoster/Shingles Vaccine Seri es Screening: Adults aged 18+ yrs (or HM Modifiers)([facility]) (1 of 2) 07/31/2001 Osteoporosis Screening to Pr event Fractures: Women aged 65 years+ ([facility]) 07/31/2016 Flu Vaccination: Ages 65+: Y early High Dose Recommended (or Modifier)([facility]) 11/17/2024 COVID-19 Vaccine Screening: Initial Series and Booster Status ([facility]) ( - 2023- season) 2024 RSV Vaccines (1 - 1-dose 75+ series) 07/31/2026 [employer] Devices Not on file Insurance [employer] [place] MEDICARE Care Teams Human Resources Operations Manager Relationship Specialty Start Date End Date Pcp, Torie PCP - General Family Medicine 12/24/20
--- OUTSIDE RECORDS SUMMARY | 2025-01-10 11:05 | XMS_ITS | Encounter Summary ---
Author Organization [facility] Address [address] [place] [address] Care Team Providers Care Licensed Midwife Name Role Phone Michelle Álvarez MD Primary Care Provider Encounter Details Date Type Department Care Team (Late st Contact Info) Description 07/07/2024 Lab Requisition [facility] - Main Lab [address] [place] [address] Joaquina Payton PA [address] [place] [address] Urgency of urination Social History Tobacco Use [...] Urine No growth 07/08/2024 2:56 PM EDT [facility] Urine Urine specimen obtained by clean catch procedure / Unknown 07/07/2024 07/07/2024 6:20 PM EDT us Joaquina [facility] MICROBIOLOGY - GENERAL ORDER SHEILA Final Result [facility] ([facility] [address] [place] [address], documented in this encounter Visit Diagnoses Diagnosis Urgency of urination documented in this encounter Care Teams Licensed Midwife Relationship Specialty Start Date End Date Michelle Álvarez MD [address] [place] [address] PCP - General Internal Medicine 09/21/24 documented as of this encounter
--- OUTSIDE RECORDS SUMMARY | 2025-01-10 11:05 | XMS_ITS | Clinical Summary ---
Author Organization [facility] Address [address] [place] [id number] Care Team Providers Care Hereditary Cancer Program Coordinator Name Role Phone Michelle Álvarez Unavailable Guido Fitzgerald MD Unavailable [phone] Social History Tobacco Use Types Packs/Day Years [...] COVID-19 Vaccine ( - 2023-2 5 season) 2024 Influenza Vaccine (#1) 2024 Meningococcal B Vaccines Aged Out No longer eligible based on patient's age to complete this topic Meningococcal Vaccines Aged Out No lo nger eligible based on patient's age to complete this topic Care Teams Hereditary Cancer Program Coordinator Relationship Specialty Start Date End Date Michelle Álvarez [address] [place] [address] PCP - Insurance Assigned PCP 03/22/23 Guido Fitzgerald MD [address] [place] [id number] Neurology 09/18/23
--- OUTSIDE RECORDS SUMMARY | 2025-01-10 11:05 | XMS_ITS | Clinical Summary ---
Author Organization [address] Address [address] [place] [phone] Phone Care Team Providers Care Sander Portable Machine Name Role Phone Michelle Álvarez MD Primary Care Provider [phone] Allergies No known active allergies Medications hydrocortisone (CORTEF) 5 mg tablet See Instructions , 4 tablets By Mouth in am and 1 tablet in afternoon, # 450 tablet, 4 Refills, Acute 09/15/26 10:57:00 AM EDT, 02/09/25 10:21:00 AM EDT, [facility], 162, cm, 09/14/24 10:27:00 EDT, Height 1 09/16/19 27 Active levothyroxine (SYNTHROID, LEVOTHROID) 88 mcg tablet See Instructions , 1 tablet By Mouth 6 days of week 1/2 tablet on day 7 90 day supply, # 84 tablet, 4 Refills, Maintenance, 09/14/24 11:05:00 AM EDT, Tablet, [facility], 162, cm, 09/14/24 10:27:00 EDT, Height 1 Active estradioL (ESTRACE) 0.01 % (0.1 mg/gram) vaginal cream Insert 1 g into the vagina 2 (two) times a week. Active fludrocortisone (FLORINEF) 0.1 mg tablet Take 0.5 tablets (0.05 mg total) by mouth. 1 04/30/19 27 Active NIFEdipine XL (PROCARDIA XL) 30 mg 24 hr tablet Take 1 tablet (30 mg total) by mouth daily. 2 Active pantoprazole (PROTONIX) 40 mg EC tabletIndication s:Gastroesophage al reflux disease without esophagitis Take 1 tablet (40 mg total) by mouth 1 (one) time each day. 90 each 3 5 12/16/19 26 Active pantoprazole (PROTONIX) 40 mg EC tabletIndication s:Gastroesophage al reflux disease without esophagitis Take 1 tablet (40 mg total) by mouth 1 (one) time each day. 90 each 5 12/16/19 25 Discontinu ed(Reorder ) Active Problems Problem Noted Date Diagnosed Date Gastroesophageal reflux disease without esophagi tis 12/15/2024 Assessment & Plan (12/15/2024 2:36 PM EDT): Well-controlled with pantoprazole 40 mg once a day. Continue. ?Chanel's + bx 2013 - bx 2015 - esophagus, not biopsied for Chanel's 2019 Orders: pantoprazole (PROTONIX) 40 mg EC tablet; Take 1 tablet (40 mg total) by mouth 1 (one) time each day. Adenomatous polyp of colon 12/15/2024 Assessment & Plan (12/15/2024 2:36 PM EDT): Last colonoscopy January 2020 5-year recall Hypothyroid 12/15/2024 Steven's disease (CMS/HCC V24, CMS/[facility] V28) Encounters Date Type Department Care Team Description 12/15/2024 2:10 PM EDT Office Visit Gastroenterology - [address] [place] [address] [address] Jo-Ann He PA Adenomatous polyp of colon, unspecified part of colon (Primary Dx); Gastroesophageal reflux disease without esophagitis 12/15/2024 Telephone Gastroenterology - [address] [place] [address] Michelle Wayne MD from Last 3 Months Surgical History Surgery Date Site/Laterality Comments COLONOSCOPY 01/18/2020 - 02/17/2020 tics (5yr/hx polyps) Dr. Oliveira ESOPHAGOGASTRODUODENOSCOPY 01/18/2020 - 02/17/2020 normal esophagus (no Barretts), unremarkable mid esoph bx Dr. Oliveira LUNG SURGERY Right wedge resection/bleb Social History Tobacco Use Types Packs/Day Years Used Date Smoking Tobacco: Never Smokeless Tobacco: Never Tobacco Cessation:Counseling Given: Not Answered Alcohol Use Standard Drinks/Week Comments Yes 0 (1 standard drink = 0.6 oz pur e alcohol) occasional Comments Unknown Sex and Gender Information Value Date Recorded Sex Assigned at Not on file Legal Sex Female 12:07 AM EST Gender Identity Not on file Sexual Orientation Not on file Obstetrics History Last Filed Vital Signs Vital Sign Reading Time Taken Comments Blood Pressure - - Pulse - - Temperature - - Respiratory Rate - - Oxygen Saturation - - Inhaled Oxygen Concentration - - Weight 64.6 kg (142 lb 6.4 oz) 12/15/2024 2:00 P M EDT Height 165.1 cm (5' 5 ) 12/15/2024 2:00 PM EDT Body Mass Index 23.7 12/15/2024 2:00 PM EDT Plan of Treatment Health Maintenance Due Date Last Done Comments Breast Cancer Screening 1950 Pneumococcal Vaccine: 50+ Years (1 of 1 - PCV) 07/31/2001 Zoster Vaccines (1 of 2) 07/31/2001 Falls Risk Assessment 03/22/2022 Hepatitis C Screening 03/22/2022 Medicare Annual Wellness Visit 03/22/2022 Osteoporosis Screening (Bone Density Screening) 03/22/2022 Social Influencers of Health Screening 03/22/2022 Depression Screening 04/19/2024 COVID-19 Vaccine ( - season) 2024 Influenza Vaccine (#1) 2024 , 02/02/2019, 02/22/2018, Additional history exists RSV Immunization Adult Patients (1 - 1-dose 75+ series) 07/31/2026 DTaP,Tdap,and Td Vaccines (2 - Td or Tdap) 09/09/2026 09/09/2016 Colorectal Cancer Screening: Colonoscopy 12/14/2034 12/14/2024 HIB Vaccines Aged Out No longer eligi [...] to complete this topic RSV Immunization Patients Under 20 months Aged Out No longer eligible based on patient's age to complete this topic Varicella Vaccines Aged Out No longer eligible based on patient's age to complete this topic Procedures Procedure Name Priority Date/Time Associated Diagnosis Comments COLONOSCOPY Routine 12/14/2024 2:57 PM EDT from Last 3 Months Results * COLONOSCOPY (12/14/2024 2:57 PM EDT) Anatomical Region Laterality Modality Endoscopy us Historical Provider GI~PROCEDURE ORDERABLES F inal Result from Last 3 Months Insurance MEDICARE [facility] Care Teams Sander Portable Machine Relationship Specialty Start Date End Date Michelle Álvarez MD [address] [place] [address] PCP - General Internal Medicine 09/21/24
--- OUTSIDE RECORDS SUMMARY | 2025-01-10 11:05 | XMS_ITS | Clinical Summary ---
Author Organization [facility] Address [address] [address] Phone Care Team Providers Care Laminating Machine Offbearer Name Role Phone Michelle Álvarez MD Primary Care Provider [phone] Allergies No known active allergies Medications hydrocortisone [...] SCREENING INITIAL (ONE-TIME) 07/31/2016 INFLUENZA VACCINE (#1) 2024 , 02/02/2019, 02/22/2018, Additional history exists COVID-19 VACCINE (3 - 2024- season) 2024 07/16/2020, 06/25/2020 RSV VACCINE (1 - 1-dose [...] file Insurance MEDICARE PART A & B [facility] [employer] SUPPLEMENT Care Teams Laminating Machine Offbearer Relationship Specialty Start Date End Date Michelle Álvarez MD [address] [place] [address] PCP - General Internal Medicine 03/18/21 Additional Source Comments The information contained in this document represents components of the legal health record. It is not the complete legal health record.[facility]
== END 2025-01-10 09:40 | disposition home or self-care (01) ==
PROVIDERS: PCP Internal Medicine; Referring Provider Internal Medicine; Visit Provider Nurse Practitioner Family
DX: G47.8 Other sleep disorders (principal); R06.00 Dyspnea, unspecified
CPT/HCPCS: 99203

== ENCOUNTER → 2025-01-10 09:22 | Outpatient (BNVA) | payer MEDICARE, SELFPAY | PROVIDERS: PCP Internal Medicine; Referring Provider Internal Medicine; Visit Provider Nurse Practitioner Family | DX: G47.8 Other sleep disorders (principal); G47.33 Obstructive sleep apnea (adult) (pediatric); R06.00 Dyspnea, unspecified; R06.83 Snoring | CPT/HCPCS: 99202 ==